=== PATIENT | female | born 1970 | race Caucasian/White ===

== ENCOUNTER 2019-12-21 10:28 | Outpatient (REF) | payer OTHER, SELFPAY | END 2019-12-21 10:29 | disposition home or self-care (01) | LOC: HO.LAB 10:28 | PROVIDERS: PCP Family Medicine; Visit Provider Internal Medicine | DX: Z20.828 Contact with and (suspected) exposure to other viral communicable diseases (principal) | CPT/HCPCS: 87635 ==

== ENCOUNTER → 2020-01-01 09:09 | Outpatient (BNVA) | payer OTHER, SELFPAY | PROVIDERS: PCP Family Medicine; Referring Provider Family Medicine; Visit Provider Obstetrics & Gynecology | DX: Z76.89 Persons encountering health services in other specified circumstances (principal) ==

== ENCOUNTER → 2020-01-11 08:10 | Outpatient (BNVA) | payer OTHER, SELFPAY | PROVIDERS: PCP Family Medicine; Referring Provider Family Medicine; Visit Provider Student in an Organized Health Care Education/Training Program | DX: Z76.89 Persons encountering health services in other specified circumstances (principal) ==

== ENCOUNTER 2020-03-05 16:05 | Outpatient (REF) | payer OTHER, SELFPAY | END 2020-03-05 16:06 | disposition home or self-care (01) | LOC: HO.LAB 16:05 | PROVIDERS: Visit Provider Internal Medicine | DX: Z20.828 Contact with and (suspected) exposure to other viral communicable diseases (principal) | CPT/HCPCS: C9803; U0003 ==

== ENCOUNTER 2020-03-12 16:02 | Outpatient (REF) | payer OTHER, SELFPAY ==
[2020-03-12 16:41] LABS: MANUAL DIFF FLAG NO
[2020-03-12 16:48] LABS: Basophils Absolute Auto 0.1 X10*3/uL (0.0-0.2); Basophils Percent Auto 0.8 % (0-2); Eosinophils Absolute Auto 0.3 X10*3/uL (0.0-0.4); Eosinophils Percent Auto 3.4 % (0-4); Hematocrit 38.8 % (37-47); Hemoglobin 13.1 g/dl (12.0-16.0); Imm Gran Abs Auto 0.02 X10*3/uL (0.00-0.03); Imm Gran Pct Auto 0.2 % (0.0-0.4); Lymphocytes Absolute Auto 3.5 X10*3/uL (1.2-4.9); Lymphocytes Percent Auto 42.7 % (20-40); Mean Corpuscular HGB Conc 33.8 g/dl (31.0-35.0); Mean Corpuscular Hemoglobin 31.3 pg (27.0-33.0); Mean Corpuscular Volume 92.8 fL (80-98); Mean Platelet Volume 10.4 fL (9.4-12.3); Monocytes Absolute Auto 0.7 X10*3/uL (0.1-1.2); Neutrophils Absolute Auto 3.7 X10*3/uL (2.0-8.3); Neutrophils Percent Auto 44.9 % (45-73); Platelet Count 182 X10*3/uL (160-400); Red Blood Count 4.18 X10*6/uL (4.20-5.50); Red Cell Distribution Width 12.5 % (11.0-16.0); White Blood Count 8.3 X10*3/uL (4.8-10.8)
[2020-03-12 17:14] LABS: Alanine Aminotransferase 18 U/L (0-31); Albumin Level 4.4 g/dL (3.5-5.0); Alkaline Phosphatase 46 U/L (39-117); Anion Gap 10 (12-20); Aspartate Amino Transferase 22 U/L (5-31); Bilirubin Total 0.5 mg/dL (0.0-1.0); Blood Urea Nitrogen 26 mg/dL (9-16); C Reactive Protein 0.04 mg/dL (< or = 0.50); Calcium 8.9 mg/dL (8.4-10.2); Carbon Dioxide 26 mmol/L (22-29); Chloride 109 mmol/L (96-108); Estimated Glomerular Filt Rate > 60; Glucose Random 85 mg/dL (60-115); Sodium 141 mmol/L (135-145); Total Protein 6.9 g/dL (6.5-8.0)
[2020-03-12 17:34] LABS: TSH reflex Free T4 0.91 mIU/mL (0.32-4.0)
== END 2020-03-12 16:03 | disposition home or self-care (01) ==
LOC: HO.LAB 16:02
PROVIDERS: PCP Family Medicine; Visit Provider Student in an Organized Health Care Education/Training Program
DX: M06.00 Rheumatoid arthritis without rheumatoid factor, unspecified site (principal); Z79.52 Long term (current) use of systemic steroids
CPT/HCPCS: 36415; 80053; 84443; 85025; 86140

== ENCOUNTER → 2020-05-31 07:55 | Outpatient (BNVA) | payer OTHER, SELFPAY | PROVIDERS: PCP Family Medicine; Referring Provider Family Medicine; Visit Provider Student in an Organized Health Care Education/Training Program ==

== ENCOUNTER 2020-08-13 12:11 | Outpatient (REF) | payer OTHER, SELFPAY ==
[2020-08-13 13:15] LABS: MANUAL DIFF FLAG NO
[2020-08-13 13:21] LABS: Basophils Percent Auto 0.6 % (0-2); Eosinophils Absolute Auto 0.1 X10*3/uL (0.0-0.4); Eosinophils Percent Auto 1.4 % (0-4); Hematocrit 39.2 % (37-47); Hemoglobin 12.9 g/dl (12.0-16.0); Imm Gran Abs Auto 0.03 X10*3/uL (0.00-0.03); Imm Gran Pct Auto 0.4 % (0.0-0.4); Lymphocytes Absolute Auto 2.3 X10*3/uL (1.2-4.9); Lymphocytes Percent Auto 32.4 % (20-40); Mean Corpuscular HGB Conc 32.9 g/dl (31.0-35.0); Mean Corpuscular Hemoglobin 30.7 pg (27.0-33.0); Mean Corpuscular Volume 93.3 fL (80-98); Mean Platelet Volume 10.8 fL (9.4-12.3); Monocytes Absolute Auto 0.4 X10*3/uL (0.1-1.2); Neutrophils Absolute Auto 4.3 X10*3/uL (2.0-8.3); Neutrophils Percent Auto 59.2 % (45-73); Platelet Count 192 X10*3/uL (160-400); Red Cell Distribution Width 12.6 % (11.0-16.0); White Blood Count 7.2 X10*3/uL (4.8-10.8)
[2020-08-13 13:56] LABS: Alanine Aminotransferase 16 U/L (0-31); Albumin Level 4.6 g/dL (3.5-5.0); Alkaline Phosphatase 48 U/L (39-117); Anion Gap 13 (12-20); Aspartate Amino Transferase 19 U/L (5-31); Bilirubin Total 0.9 mg/dL (0.0-1.0); Blood Urea Nitrogen 18 mg/dL (9-16); C Reactive Protein 0.04 mg/dL (< or = 0.50); Calcium 9.4 mg/dL (8.4-10.2); Carbon Dioxide 25 mmol/L (22-29); Chloride 106 mmol/L (96-108); Estimated Glomerular Filt Rate > 60; Glucose Random 94 mg/dL (60-115); Sodium 140 mmol/L (135-145); Total Protein 7.1 g/dL (6.5-8.0)
[2020-08-13 14:04] LABS: Erythrocyte Sedimentation Rate 2 MM/HR (0-20)
[2020-08-13 14:13] LABS: TSH reflex Free T4 0.26 uIU/mL (0.32-4.0)
[2020-08-13 14:56] LABS: Free T4 (Free Thyroxine) 1.32 ng/dL (0.71-1.85)
[2020-08-17 11:52] LABS: Vitamin D 25-OH, D2 <4 ng/mL; Vitamin D 25-OH, D3 26 ng/mL; Vitamin D 25-OH, Total 26 ng/mL (30-100)
== END 2020-08-13 12:12 | disposition home or self-care (01) ==
LOC: HO.LAB 12:11
PROVIDERS: Absent Provider Family Medicine; PCP Family Medicine; Visit Provider Student in an Organized Health Care Education/Training Program
DX: M06.00 Rheumatoid arthritis without rheumatoid factor, unspecified site (principal); E03.9 Hypothyroidism, unspecified
CPT/HCPCS: 36415; 80053; 82306; 84439; 84443; 85025; 85652; 86140

== ENCOUNTER → 2020-08-30 08:22 | Outpatient (BNVA) | payer OTHER, SELFPAY | PROVIDERS: PCP Family Medicine; Visit Provider Student in an Organized Health Care Education/Training Program ==

== ENCOUNTER → 2020-12-04 08:05 | Outpatient (BNVA) | payer OTHER, SELFPAY | PROVIDERS: PCP Family Medicine; Visit Provider Nurse Practitioner Family ==

== ENCOUNTER 2021-01-02 08:02 | Outpatient (REF) | payer OTHER, SELFPAY ==
[2021-01-02 08:16] LABS: MANUAL DIFF FLAG NO
[2021-01-02 08:47] LABS: Basophils Absolute Auto 0.1 X10*3/uL (0.0-0.2); Basophils Percent Auto 0.9 % (0-2); Eosinophils Absolute Auto 0.5 X10*3/uL (0.0-0.4); Eosinophils Percent Auto 6.3 % (0-4); Hematocrit 40.3 % (37-47); Hemoglobin 13.7 g/dl (12.0-16.0); Imm Gran Abs Auto 0.04 X10*3/uL (0.00-0.03); Imm Gran Pct Auto 0.5 % (0.0-0.4); Lymphocytes Absolute Auto 3.1 X10*3/uL (1.2-4.9); Lymphocytes Percent Auto 38.4 % (20-40); Mean Corpuscular Volume 91.2 fL (80-98); Mean Platelet Volume 10.7 fL (9.4-12.3); Monocytes Absolute Auto 0.7 X10*3/uL (0.1-1.2); Monocytes Percent Auto 9.3 % (2-11); Neutrophils Absolute Auto 3.6 X10*3/uL (2.0-8.3); Neutrophils Percent Auto 44.6 % (45-73); Platelet Count 198 X10*3/uL (160-400); Red Blood Count 4.42 X10*6/uL (4.20-5.50); Red Cell Distribution Width 12.5 % (11.0-16.0)
[2021-01-02 09:08] LABS: Alanine Aminotransferase 21 U/L (0-31); Albumin Level 4.5 g/dL (3.5-5.0); Alkaline Phosphatase 49 U/L (39-117); Anion Gap 11 (12-20); Aspartate Amino Transferase 22 U/L (5-31); Bilirubin Total 1.2 mg/dL (0.0-1.0); Blood Urea Nitrogen 26 mg/dL (9-16); C Reactive Protein 0.06 mg/dL (< or = 0.50); Calcium 9.6 mg/dL (8.4-10.2); Carbon Dioxide 24 mmol/L (22-29); Chloride 107 mmol/L (96-108); Estimated Glomerular Filt Rate > 60; Glucose Random 94 mg/dL (60-115); Potassium 4.4 mmol/L (3.3-5.1); Sodium 138 mmol/L (135-145); Total Protein 7.4 g/dL (6.5-8.0)
[2021-01-02 09:33] LABS: Erythrocyte Sedimentation Rate 2 MM/HR (0-20)
== END 2021-01-02 08:03 | disposition home or self-care (01) ==
LOC: HO.LAB 08:02
PROVIDERS: Absent Provider Nurse Practitioner Family; PCP Family Medicine; Visit Provider Student in an Organized Health Care Education/Training Program
DX: M06.00 Rheumatoid arthritis without rheumatoid factor, unspecified site (principal)
CPT/HCPCS: 36415; 80053; 85025; 85652; 86140

== ENCOUNTER → 2021-03-12 09:42 | Outpatient (BNVA) | payer OTHER, SELFPAY | PROVIDERS: PCP Family Medicine; Visit Provider Advanced Practice Midwife | DX: Z30.433 Encounter for removal and reinsertion of intrauterine contraceptive device (principal) | CPT/HCPCS: 58300; 58301; 81025; J7298 ==

== ENCOUNTER → 2021-04-09 10:43 | Outpatient (BNVA) | payer OTHER, SELFPAY | PROVIDERS: PCP Family Medicine; Visit Provider Advanced Practice Midwife ==

== ENCOUNTER → 2021-04-21 07:57 | Outpatient (BNVA) | payer OTHER, SELFPAY | PROVIDERS: PCP Family Medicine; Visit Provider Nurse Practitioner Family ==

== ENCOUNTER 2021-04-22 08:30 | Outpatient (REF) | payer OTHER, SELFPAY ==
[2021-04-22 09:00] LABS: MANUAL DIFF FLAG NO
[2021-04-22 09:38] LABS: Basophils Absolute Auto 0.1 X10*3/uL (0.0-0.2); Basophils Percent Auto 0.7 % (0-2); Eosinophils Absolute Auto 0.4 X10*3/uL (0.0-0.4); Eosinophils Percent Auto 4.7 % (0-4); Hematocrit 41.5 % (37.0-47.0); Hemoglobin 13.9 g/dl (12.0-16.0); Imm Gran Abs Auto 0.03 X10*3/uL (0.00-0.03); Imm Gran Pct Auto 0.4 % (0.0-0.4); Lymphocytes Absolute Auto 3.4 X10*3/uL (1.2-4.9); Lymphocytes Percent Auto 41.2 % (20-40); Mean Corpuscular HGB Conc 33.5 g/dl (31.0-35.0); Mean Corpuscular Hemoglobin 30.7 pg (27.0-33.0); Mean Corpuscular Volume 91.6 fL (80.0-98.0); Mean Platelet Volume 10.4 fL (9.4-12.3); Monocytes Absolute Auto 0.8 X10*3/uL (0.1-1.2); Monocytes Percent Auto 9.2 % (2-11); Neutrophils Absolute Auto 3.6 x10*3/uL (2.0-8.3); Neutrophils Percent Auto 43.8 % (45-73); Platelet Count 223 X10*3/uL (160-400); Red Blood Count 4.53 X10*6/uL (4.20-5.50); Red Cell Distribution Width 12.4 % (11.0-16.0); White Blood Count 8.3 X10*3/uL (4.8-10.8)
[2021-04-22 10:04] LABS: Alanine Aminotransferase 20 U/L (0-31); Albumin Level 4.6 g/dL (3.5-5.0); Alkaline Phosphatase 50 U/L (39-117); Anion Gap 11 (12-20); Aspartate Amino Transferase 19 U/L (5-31); Bilirubin Total 0.7 mg/dL (0.0-1.0); Blood Urea Nitrogen 24 mg/dL (9-16); Calcium 9.9 mg/dL (8.4-10.2); Carbon Dioxide 25 mmol/L (22-29); Chloride 107 mmol/L (96-108); Estimated Glomerular Filt Rate > 60; Glucose Random 102 mg/dL (60-115); Sodium 138 mmol/L (135-145); Total Protein 7.6 g/dL (6.5-8.0)
[2021-04-22 10:09] LABS: Erythrocyte Sedimentation Rate 2 MM/HR (0-20)
[2021-04-22 10:41] LABS: Thyroid Stimulating Hormone 0.17 uIU/mL (0.32-4.0); Vitamin D 25-OH Total 27.2 ng/mL (>30)
== END 2021-04-22 08:31 | disposition home or self-care (01) ==
LOC: HO.LAB 08:30
PROVIDERS: PCP Family Medicine; Visit Provider Nurse Practitioner Family
DX: M06.00 Rheumatoid arthritis without rheumatoid factor, unspecified site (principal)
CPT/HCPCS: 36415; 80053; 82306; 84443; 85025; 85652; 86140

== ENCOUNTER 2021-05-21 07:27 | Outpatient (REF) | payer OTHER, SELFPAY ==
--- NOTE | ~2021-05-21 | MM_ITS ---
EXAMINATION: MM SCREENING DIGITAL BREAST TOMOSYNTHESIS, BILATERAL CLINICAL INFORMATION: Screening. Asymptomatic. The lifetime risk of breast cancer based on the Tyrer-Cuzick Model is 9%. COMPARISON: Mammography: 01/04/2018, 11/01/2013 TECHNIQUE: Digital breast tomosynthesis is performed in both the craniocaudal and mediolateral oblique views along with computer-aided detection (CAD). Synthesized 2D images are generated from the tomosynthesis. FINDINGS: There are scattered areas of fibroglandular density (ACR BI-RADS breast composition Category b). There are no significant masses, abnormal calcifications, or other abnormalities. Parenchymal pattern is similar to prior studies. There are no significant changes. MM/MM tomosynthesis screening BI IMPRESSION: No mammographic evidence of malignancy. ASSESSMENT: BI-RADS 1: Negative RECOMMENDATION: Routine annual mammography screening. This patient's information was entered into a reminder system with a target due date for their next mammogram.
== END 2021-05-21 07:28 | disposition home or self-care (01) ==
LOC: HO.MAMMO 07:27
PROVIDERS: PCP Family Medicine; Visit Provider Advanced Practice Midwife
DX: Z12.31 Encounter for screening mammogram for malignant neoplasm of breast (principal)
CPT/HCPCS: 77063; 77067

== ENCOUNTER → 2021-07-18 07:55 | Outpatient (BNVA) | payer OTHER, SELFPAY | PROVIDERS: PCP Family Medicine; Visit Provider Nurse Practitioner Family | DX: M06.00 Rheumatoid arthritis without rheumatoid factor, unspecified site (principal) ==

== ENCOUNTER 2021-08-25 12:45 | Outpatient (REF) | payer OTHER, SELFPAY ==
[2021-08-25 12:58] LABS: MANUAL DIFF FLAG NO
[2021-08-25 13:23] LABS: Basophils Absolute Auto 0.1 X10*3/uL (0.0-0.2); Basophils Percent Auto 0.5 % (0-2); Eosinophils Absolute Auto 0.2 X10*3/uL (0.0-0.4); Eosinophils Percent Auto 1.8 % (0-4); Hematocrit 38.8 % (37.0-47.0); Imm Gran Abs Auto 0.05 X10*3/uL (0.00-0.03); Imm Gran Pct Auto 0.5 % (0.0-0.4); Lymphocytes Absolute Auto 2.5 X10*3/uL (1.2-4.9); Lymphocytes Percent Auto 26.8 % (20-40); Mean Corpuscular HGB Conc 33.5 g/dl (31.0-35.0); Mean Corpuscular Hemoglobin 31.3 pg (27.0-33.0); Mean Corpuscular Volume 93.3 fL (80.0-98.0); Mean Platelet Volume 10.2 fL (9.4-12.3); Monocytes Absolute Auto 0.6 X10*3/uL (0.1-1.2); Monocytes Percent Auto 6.3 % (2-11); Neutrophils Absolute Auto 6.1 x10*3/uL (2.0-8.3); Neutrophils Percent Auto 64.1 % (45-73); Platelet Count 205 X10*3/uL (160-400); Red Blood Count 4.16 X10*6/uL (4.20-5.50); White Blood Count 9.5 X10*3/uL (4.8-10.8)
[2021-08-25 13:43] LABS: Alanine Aminotransferase 17 U/L (0-31); Albumin Level 4.4 g/dL (3.5-5.0); Alkaline Phosphatase 50 U/L (39-117); Anion Gap 11 (12-20); Aspartate Amino Transferase 18 U/L (5-31); Bilirubin Total 0.9 mg/dL (0.0-1.0); Blood Urea Nitrogen 19 mg/dL (9-16); C Reactive Protein 0.09 mg/dL (< or = 0.50); Calcium 9.4 mg/dL (8.4-10.2); Carbon Dioxide 27 mmol/L (22-29); Chloride 105 mmol/L (96-108); Estimated Glomerular Filt Rate > 60; Glucose Random 89 mg/dL (60-115); Potassium 4.6 mmol/L (3.3-5.1); Sodium 138 mmol/L (135-145); Total Protein 7.3 g/dL (6.5-8.0)
[2021-08-25 14:03] LABS: Vitamin D 25-OH Total 24.6 ng/mL (>30)
[2021-08-25 14:08] LABS: TSH reflex Free T4 1.08 uIU/mL (0.32-4.0)
[2021-08-25 14:31] LABS: Erythrocyte Sedimentation Rate 2 MM/HR (0-20)
== END 2021-08-25 12:46 | disposition home or self-care (01) ==
LOC: HO.LAB 12:45
PROVIDERS: Absent Provider Family Medicine; PCP Family Medicine; Visit Provider Nurse Practitioner Family
DX: M06.00 Rheumatoid arthritis without rheumatoid factor, unspecified site (principal); E03.9 Hypothyroidism, unspecified
CPT/HCPCS: 36415; 80053; 82306; 84443; 85025; 85652; 86140

== ENCOUNTER 2021-10-30 08:50 | Outpatient (REF) | payer OTHER, SELFPAY ==
[2021-10-30 10:59] LABS: MANUAL DIFF FLAG NO
[2021-10-30 11:05] LABS: Basophils Absolute Auto 0.1 X10*3/uL (0.0-0.2); Basophils Percent Auto 0.9 % (0-2); Eosinophils Absolute Auto 0.4 X10*3/uL (0.0-0.4); Eosinophils Percent Auto 5.8 % (0-4); Hematocrit 38.8 % (37.0-47.0); Imm Gran Abs Auto 0.03 X10*3/uL (0.00-0.03); Imm Gran Pct Auto 0.4 % (0.0-0.4); Lymphocytes Absolute Auto 2.5 X10*3/uL (1.2-4.9); Lymphocytes Percent Auto 36.7 % (20-40); Mean Corpuscular HGB Conc 33.5 g/dl (31.0-35.0); Mean Corpuscular Hemoglobin 31.6 pg (27.0-33.0); Mean Corpuscular Volume 94.4 fL (80.0-98.0); Mean Platelet Volume 10.8 fL (9.4-12.3); Monocytes Absolute Auto 0.5 X10*3/uL (0.1-1.2); Monocytes Percent Auto 7.5 % (2-11); Neutrophils Absolute Auto 3.3 x10*3/uL (2.0-8.3); Neutrophils Percent Auto 48.7 % (45-73); Platelet Count 189 X10*3/uL (160-400); Red Blood Count 4.11 X10*6/uL (4.20-5.50); Red Cell Distribution Width 12.6 % (11.0-16.0); White Blood Count 6.8 X10*3/uL (4.8-10.8)
[2021-10-30 11:16] LABS: Alanine Aminotransferase 26 U/L (0-31); Aspartate Amino Transferase 28 U/L (5-31); C Reactive Protein 0.08 mg/dL (< or = 0.50); Estimated Glomerular Filt Rate > 60
[2021-10-30 11:46] LABS: Erythrocyte Sedimentation Rate 3 MM/HR (0-20)
== END 2021-10-30 08:51 | disposition home or self-care (01) ==
LOC: HO.10HDL 08:50
PROVIDERS: Visit Provider Nurse Practitioner Family
DX: M06.00 Rheumatoid arthritis without rheumatoid factor, unspecified site (principal); Z79.899 Other long term (current) drug therapy
CPT/HCPCS: 36415; 82306; 82565; 84450; 84460; 85025; 85652; 86140

== ENCOUNTER 2022-01-16 14:00 | Outpatient (RCR) | payer OTHER, SELFPAY ==
--- NOTE | 2021-10-07 09:06 | MHC.PT.EP ---
[facility] [place] Office [place] Office [place] Office [address] [phone] F: [phone] F: [phone] F: [phone] F: [phone] Physical Therapy Plan of Care Date of Evaluation: Date of Surgery: NA Diagnosis: Pain in LT lower leg Assessment: Karey is a 51 year old female who is referred to PT for Lower leg pain, L . She reports of having sudden onset of pain in L calf about 2 weeks back while playing pickle ball. She performed a hard step on L foot after which she heard a pop and was unable to weight bear. On PT examination she walked in with crutches and was non weight bearing, reported of having pain, tightness and stiffness in her calf, presented with significant swelling, decreased ankle ROM and strength and inability to weight bear on L LE. She is independent with most ADLS however modifies them. 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 She was recommended a ortho visit for further detailed assessment and imaging. She would benefit from skilled PT to address the aforementioned impairment and improve tolerance to functional activities. Frequency and Duration: The patient will be seen 2/week for 9 weeks Short Term Goals: 1. Pt will have 50% decrease in pain and swelling which will help her tolerate sitting with her legs hanging in 3 weeks. 2. Pt will have all ankle ROM WNL which will enable her to ambulate weight bearing as tolerated in 4 weeks. Care Home Goals: 1. Pt will demonstrate an increase in strength by 1 grade which will enable her to ambulate without AD in 6 weeks. 2. Pt will be able to perform FWB on L and tolerate SLS which will enable her to negotiate stairs in 8 weeks. 3. Pt will return to PLOF in 9 weeks. Treatment Plan: Modalities to reduce pain, spasms and effusion. Manual therapy to restore motion and function. Therapeutic exercise to improve strength and flexibility. Neuromuscular re-education for posture and balance. Therapeutic activities to return to functional activities of daily living. Electronically signed by: Patricia Wolf PT DPT Please sign and return to therapist. Thank you for your referral.
--- NOTE | 2022-01-19 13:34 | MHC.PT.DC ---
[facility] [place] Office [place] Office [place] Office [address] Kiah Mcpherson [address] [phone] F: [phone] F: [phone] F: [phone] F: [phone] Physical Therapy Discharge Report Diagnosis: Pain in LT lower leg Date of Surgery: NA Date of Evaluation: 10/07/21 Date of Discharge: 01/19/22 Treatments to Date: 19 Cancellations to Date: No Shows to Date: 0 Discharge Status: Achieved Goals Improved Function Independent with HEP Discharge Summary: Karey completed 19 PT visits. She has achieved all goals set for and is independent with all her HEP. She has also returned to PLOF. She is therefore being d/c from PT. Electronically signed by: Patricia Wolf, PT DPT Please sign and return to therapist. Thank you for your referral.
== END 2022-01-19 13:34 | disposition home or self-care (01) ==
LOC: HO.PT 14:00
PROVIDERS: Absent Provider Physician Assistant; PCP Family Medicine; Visit Provider Internal Medicine
DX: M79.662 Pain in left lower leg (principal)
CPT/HCPCS: 97035; 97110; 97112; 97140; 97162; 97530

== ENCOUNTER 2022-01-16 15:05 | Outpatient (REF) | payer OTHER, SELFPAY ==
[2022-01-16 15:41] LABS: Alanine Aminotransferase 29 U/L (0-31); Albumin Level 4.5 g/dL (3.5-5.0); Alkaline Phosphatase 55 U/L (39-117); Aspartate Amino Transferase 26 U/L (5-31); Bilirubin Direct 0.3 mg/dL (0.0-0.5); Bilirubin Total 0.8 mg/dL (0.0-1.0); Total Protein 7.5 g/dL (6.5-8.0)
== END 2022-01-16 15:06 | disposition home or self-care (01) ==
LOC: HO.LAB 15:05
PROVIDERS: PCP Family Medicine; Visit Provider Podiatrist
DX: B35.1 Tinea unguium (principal)
CPT/HCPCS: 36415; 80076

== ENCOUNTER → 2022-04-27 14:13 | Outpatient (BNVA) | payer BC, SELFPAY | PROVIDERS: PCP Family Medicine; Visit Provider Nurse Practitioner Family | DX: Z13.89 Encounter for screening for other disorder (principal) ==

== ENCOUNTER 2022-05-27 07:29 | Outpatient (REF) | payer BC, SELFPAY ==
--- NOTE | ~2022-05-27 | MM_ITS ---
EXAMINATION: MM SCREENING DIGITAL BREAST TOMOSYNTHESIS, BILATERAL CLINICAL INFORMATION: Screening. Asymptomatic. The lifetime risk of breast cancer based on the Tyrer-Cuzick Model is 10.0%. COMPARISON: Mammography: May 21, 2021 and studies dating back to November 01, 2013 TECHNIQUE: Digital breast tomosynthesis is performed in both the craniocaudal and mediolateral oblique views along with computer-aided detection (CAD). Synthesized 2D images are generated from the tomosynthesis. FINDINGS: There are scattered areas of fibroglandular density (ACR BI-RADS breast composition Category b). There are no significant masses, abnormal calcifications, or other abnormalities. MM/MM tomosynthesis screening BI IMPRESSION: No significant changes from prior exam. ASSESSMENT: BI-RADS 1: Negative RECOMMENDATION: Routine annual mammography screening. This patient's information was entered into a reminder system with a target due date for their next mammogram.
--- NOTE | ~2022-05-27 | MM_ITS ---
EXAMINATION: BONE DENSITOMETRY CLINICAL INDICATION: Long-term (current) use of systemic steroids. COMPARISON: Baseline BD dated 09/09/2018. TECHNIQUE: Using a [employer] DXA System (software version: 13.1) manufactured by [employer], dual-energy x-ray absorptiometry was performed of the lumbar spine and left hip. The images are of good technical quality. Summary results are attached. FINDINGS: AP SPINE L1-L4: Current: BMD 1.169 g/cm2, Z-score 0.3, T-score -0.1, normal, 1.6% decrease from baseline (<5% change is not significant). Baseline: BMD 1.188 g/cm2. LEFT FEMUR, NECK: Current: BMD 0.871 g/cm2, Z-score -0.5, T-score -1.2, osteopenia. Baseline: BMD 0.824 g/cm2. LEFT FEMUR, TOTAL: Current: BMD 0.958 g/cm2, Z-score 0.0, T-score -0.4, normal, 9.5% increase from baseline (<5% change is not significant). Baseline: BMD 0.875 g/cm2. IDENTIFIED RISK FACTORS: Rheumatoid arthritis, glucocorticoids (chronic). HISTORY OF FRACTURE: None listed. MEDICATIONS: Vitamin D. MM/XR DEXA axial skeleton IMPRESSION: 1. DIAGNOSIS: Osteopenia based on the lowest T-score value of -1.2 in the femoral neck applying World Health Organization criteria. 2. 10-YEAR FRACTURE RISK PREDICTION, FRAX: Major osteoporotic fracture (clinical spine, forearm, hip or shoulder) 9.2%. Hip fracture 0.7%. 3. Treatment Recommendations: NOF guidelines recommend consideration for treatment in postmenopausal women and men age 50 and older presenting with the following: -A hip or vertebral (clinical or morphometric) fracture. -T-score less than or equal to -2.5 at the femoral neck or spine after appropriate evaluation to exclude secondary causes. -Low bone mass at the hip or spine and a 10-year fracture probability by FRAX of greater than or equal to 3% for hip fracture or greater than or equal to 20% for major osteoporotic fracture based on the [place] adapted WHO algorithm. 4. Other Recommendations: All treatment decisions require clinical judgment and consideration of individual patient factors, including patient preferences, comorbidities, previous drug use, risk factors not captured in the FRAX model (e.g. frailty, falls, vitamin D deficiency, increased bone turnover, interval significant decline in bone density) and possible under or overestimation of fracture risk by FRAX. Additional medical evaluation for secondary cause of low bone mineral density may be appropriate. FUTURE SCAN RECOMMENDATION: People with diagnosed cases of osteoporosis or at high risk for fracture should have regular bone mineral density tests. For patients eligible for Medicare, routine testing is allowed once every 2 years. The testing frequency can be increased to one year for patients who have rapidly progressing disease, those who are receiving or discontinuing medical therapy to restore bone mass, or have additional risk factors.
== END 2022-05-27 07:30 | disposition home or self-care (01) ==
LOC: HO.MAMMO 07:29
PROVIDERS: PCP Family Medicine; Visit Provider Nurse Practitioner Family
DX: Z12.31 Encounter for screening mammogram for malignant neoplasm of breast (principal); Z13.820 Encounter for screening for osteoporosis; Z79.52 Long term (current) use of systemic steroids
CPT/HCPCS: 77063; 77067; 77080

== ENCOUNTER 2022-05-29 08:23 | Outpatient (REF) | payer BC, SELFPAY ==
[2022-05-29 11:28] LABS: MANUAL DIFF FLAG NO
[2022-05-29 11:29] LABS: Basophils Absolute Auto 0.1 X10*3/uL (0.0-0.2); Basophils Percent Auto 0.6 % (0-2); Eosinophils Absolute Auto 0.4 X10*3/uL (0.0-0.4); Eosinophils Percent Auto 4.4 % (0-4); Hematocrit 39.1 % (37.0-47.0); Imm Gran Abs Auto 0.03 X10*3/uL (0.00-0.03); Imm Gran Pct Auto 0.4 % (0.0-0.4); Lymphocytes Absolute Auto 3.1 X10*3/uL (1.2-4.9); Lymphocytes Percent Auto 37.6 % (20-40); Mean Corpuscular HGB Conc 33.2 g/dl (31.0-35.0); Mean Corpuscular Hemoglobin 31.2 pg (27.0-33.0); Mean Corpuscular Volume 93.8 fL (80.0-98.0); Mean Platelet Volume 10.9 fL (9.4-12.3); Monocytes Absolute Auto 0.6 X10*3/uL (0.1-1.2); Monocytes Percent Auto 7.8 % (2-11); Neutrophils Percent Auto 49.2 % (45-73); Platelet Count 192 X10*3/uL (160-400); Red Blood Count 4.17 X10*6/uL (4.20-5.50); White Blood Count 8.2 X10*3/uL (4.8-10.8)
[2022-05-29 12:02] LABS: Alanine Aminotransferase 19 U/L (0-31); Aspartate Amino Transferase 20 U/L (5-31); C Reactive Protein < 0.10 mg/dL (< or = 0.50); Estimated Glomerular Filt Rate > 60
[2022-05-29 12:03] LABS: Alanine Aminotransferase 18 U/L (0-31); Albumin Level 4.2 g/dL (3.5-5.0); Alkaline Phosphatase 39 U/L (39-117); Aspartate Amino Transferase 20 U/L (5-31); Bilirubin Direct 0.2 mg/dL (0.0-0.5); Bilirubin Total 0.7 mg/dL (0.0-1.0); Total Protein 6.9 g/dL (6.5-8.0)
[2022-05-29 12:17] LABS: Erythrocyte Sedimentation Rate 2 MM/HR (0-20)
== END 2022-05-29 08:24 | disposition home or self-care (01) ==
LOC: HO.10HDL 08:23
PROVIDERS: Referring Provider Podiatrist; Visit Provider Nurse Practitioner Family
DX: M06.00 Rheumatoid arthritis without rheumatoid factor, unspecified site (principal); B35.1 Tinea unguium; Z79.899 Other long term (current) drug therapy
CPT/HCPCS: 36415; 80076; 82565; 84450; 84460; 85025; 85652; 86140

== ENCOUNTER 2022-09-22 11:39 | Outpatient (AMB) | payer BC, SELFPAY ==
[2022-09-22 11:41] VITALS: BP 104/68; PULSE 75; TEMP 36.4; O2SAT 99; BMI 24.7
--- NOTE | 2022-09-22 11:41 | MHC.OFFVIS ---
Intake Vital Signs 09/22/22 11:41 Height 5 ft 2 in Weight 135 lb 2.294 oz BMI 24.7 BP 104/68 Blood Pressure Location Lt brachial Position Sitting Pulse 75 Pulse Source Pulse Oximeter Temp 97.5 F Temp Source Skin Pulse Oximetry (%) 99 Intake Visit Reasons: rheumatoid arthritis Intake Note: Pt seen today for RA follow up. Denies new or increased joint pain, or recent flare ups. 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 Accompanied by: Self / Same As Patient Allergies shellfish derived Allergy (Unknown, Verified 09/22/22 11:43) Unknown Erythromycin Allergy (Intermediate, Uncoded 09/22/22 11:43) hives Medication List - Last Reconciled 09/22/22 by Brent Nichols MD adalimumab (Humira(CF) Pen) 40 mg (0.4 mL) subcut Q2W cholecalciferol (vitamin D3) 50 mcg PO DAILY levonorgestrel (Mirena) intrauterine levothyroxine 88 mcg PO DAILY prednisone 1 mg PO DAILY rizatriptan take 1 tablet at onset of headache; if no relief, may repeat 1 tablet after at least 2 hrs PO HPI HPI Comments History of Present Illness Details The patient presents for evaluation of rheumatoid arthritis. She says she is doing quite well currently on Humira 40 mg every 2 weeks and prednisone 1 mg daily. Occasionally on bad days she takes an extra mg of prednisone but has not had to do that in the last month or 2. There have been no adverse effects with Humira. She did have a missed week of treatment when her insurance changed but there has not been any further hold ups. She is on thyroid hormone for hypothyroidism and wants to have the TSH checked. [facility] Medical History (Updated 09/22/22 @ 12:06 by Brent Nichols MD) History of hypothyroidism Hx of rheumatoid arthritis Seronegative rheumatoid arthritis Surgical History Hx of carpal tunnel repair Hx of hernia repair Social History Household Members: Spouse Housing: House Alcohol intake: current Alcohol intake frequency: a few times a week Alcohol type: wine Patient Tobacco Use Status: Never used Tobacco e-Cigarette/Vaping Use: Never Used Sexual orientation: Straight/Heterosexual Gender identity: Female Female Reproductive History Menstrual Age of Menarche: 13 Review of Systems Const Details: Negative for appetite change, weight change, fever, chills, malaise and fatigue Eyes Details: Negative for vision change, dry eyes,headaches and dizziness ENT Details: Negative for hearing change, tinnitus, oral ulcer, nose bleeds and oral dryness. Card Details: Negative chest pain, edema and syncope Resp Details: Negative for SOB, cough and wheezing GI Details: Negative indigestion/heartburn, nausea, abdominal pain, bowel changes, diarrhea, constipation and bloody stool. Neuro Details: Occasional tingling in the right hand when that wrist becomes swollen. Negative for epilepsy, palsy, stroke, changes in speech and weakness Endo Details: Negative for polyuria and polydypsia [place]/Lymph Details: Negative for excessive bruising or bleeding. Physical Exam Vital Signs: Last Vital Signs Temp 97.5 F 09/22/22 11:41 Pulse 75 09/22/22 11:41 BP 104/68 09/22/22 11:41 Pulse Ox 99 09/22/22 11:41 BMI result Body Mass Index 24.7 APPEARANCE: Patient in no acute distress EYES no redness, pupils equal and reactive to light, eyelids normal EXTREMITIES: No edema, no calf tenderness, normal peripheral pulses. JOINT EXAM: Cervical Spine: Full range of motion without pain; no tenderness. Thoracic Spine:? No scoliosis.? No tenderness on palpation. Lumbar Spine:? Alignment normal.? Full range of motion without pain, no tenderness. Hands:? Normal pain-free range of motion without tenderness, swelling, increased warmth or erythema. 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 Wrists:? Right: Slight pain with 90 degrees of flexion extension. There is no tenderness but there may be some volar swelling. No redness or warmth. Left: Normal pain-free range of motion without tenderness, swelling, increased warmth or erythema. Elbows: Normal pain-free range of motion without tenderness, swelling, increased warmth or erythema. Shoulders:?? Full range of motion without pain. No tenderness, weakness, swelling, increased warmth or erythema. Hips:? Full range of motion without pain. Hip bursa:? No tenderness. Knees:?? Normal pain-free range of motion without tenderness, swelling, increased warmth or erythema.? There is no effusion or crepitation Ankles:? LEFT:? Normal pain-free range of motion.? No soft tissue swelling noted today. No tenderness, increased warmth or erythema. ? RIGHT:? Normal pain-free range of motion.? Swelling no swelling noted today. No tenderness, increased warmth or erythema. Feet: LEFT :? Normal pain-free range of motion with mild 1st MTP bony enlargement. There is some slight hallux valgus deformity but no tenderness in that region. Other joints are without tenderness, swelling, increased warmth or erythema.? Hallux valgus deformity 1st MTP. ? RIGHT: Right: There is some bony enlargement evidence of previous surgery at the 1st MTP. No areas of tenderness however. Other joints have normal pain-free range of motion without tenderness, swelling, increased warmth or erythema. ? 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 Plaquenil: 08/30/2018 Methotrexate: failed oral and subcutaneous dates unknown Xeljanz: dates unknown Leflunomide: dates unknown Enbrel: dates unknown Humira: April 2019- present Prednisone: 06/08/2018- present Code(s): M06.00 - Rheumatoid arthritis without rheumatoid factor, unspecified site Plan Rheumatoid arthritis with I think good control of synovitis with current regimen. I am not sure she really needs to stay on the prednisone but she feels like she does for now. We reviewed that the prednisone could increase the possibility of osteoporosis, cataract, and skin fragility even at this relatively low dose. Her bone density showed osteopenia but not enough to push for antiresorptive therapy. She still having menses so should have the bone density repeated when she experiences menopause. We will see if we can cut back the overall dose to 1 mg every other day. She can continue the Humira as above. I will check acute phase reactants, CBC, and at her request the TSH. She is on levothyroxine for hypothyroidism and has not had that checked recently. We will aim for follow-up at about 5 months. Orders: Orders C Reactive Protein 09/22/22 M06.00 - Rheumatoid arthritis without rheumatoid factor, unspecified site Thyroid Stimulating Hormone 09/22/22 M06.00 - Rheumatoid arthritis without rheumatoid factor, unspecified site, Z86.39 - Personal history of other endocrine, nutritional and metabolic disease Complete Blood Count Auto Diff 09/22/22 M06.00 - Rheumatoid arthritis without rheumatoid factor, unspecified site Erythrocyte Sedimentation Rate 09/22/22 M06.00 - Rheumatoid arthritis without rheumatoid factor, unspecified site Coding Level of Care Code Est Pt Level 3 (90724) Diagnoses correction systemic steroid user Z79.52 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
== END 2022-09-22 12:09 | disposition home or self-care (01) ==
LOC: HO.RHE 11:39
PROVIDERS: PCP Family Medicine; Visit Provider Internal Medicine Rheumatology
DX: Z79.52 Long term (current) use of systemic steroids (principal); Z79.620 Long term (current) use of immunosuppressive biologic; Z86.39 Personal history of other endocrine, nutritional and metabolic disease; M06.00 Rheumatoid arthritis without rheumatoid factor, unspecified site
CPT/HCPCS: 99213

== ENCOUNTER → 2022-09-22 11:39 | Outpatient (BNVA) | payer BC, SELFPAY | PROVIDERS: PCP Family Medicine; Visit Provider Internal Medicine Rheumatology ==

== ENCOUNTER 2022-10-13 07:59 | Outpatient (REF) | payer BC, SELFPAY ==
[2022-10-13 10:54] LABS: MANUAL DIFF FLAG NO
[2022-10-13 11:00] LABS: Basophils Absolute Auto 0.1 X10*3/uL (0.0-0.2); Basophils Percent Auto 0.9 % (0-2); Eosinophils Absolute Auto 0.6 X10*3/uL (0.0-0.4); Hematocrit 38.9 % (37.0-47.0); Hemoglobin 12.7 g/dl (12.0-16.0); Imm Gran Abs Auto 0.02 X10*3/uL (0.00-0.03); Imm Gran Pct Auto 0.3 % (0.0-0.4); Lymphocytes Absolute Auto 2.9 X10*3/uL (1.2-4.9); Lymphocytes Percent Auto 42.8 % (20-40); Mean Corpuscular HGB Conc 32.6 g/dl (31.0-35.0); Mean Corpuscular Hemoglobin 31.1 pg (27.0-33.0); Mean Corpuscular Volume 95.1 fL (80.0-98.0); Mean Platelet Volume 10.3 fL (9.4-12.3); Monocytes Absolute Auto 0.6 X10*3/uL (0.1-1.2); Monocytes Percent Auto 9.2 % (2-11); Neutrophils Absolute Auto 2.6 x10*3/uL (2.0-8.3); Neutrophils Percent Auto 37.8 % (45-73); Platelet Count 206 X10*3/uL (160-400); Red Blood Count 4.09 X10*6/uL (4.20-5.50); White Blood Count 6.9 X10*3/uL (4.8-10.8)
[2022-10-13 11:30] LABS: C Reactive Protein 0.13 mg/dL (< or = 0.50)
[2022-10-13 11:35] LABS: Thyroid Stimulating Hormone 0.64 uIU/mL (0.32-4.0)
[2022-10-13 11:43] LABS: Erythrocyte Sedimentation Rate 3 MM/HR (0-20)
== END 2022-10-13 08:00 | disposition home or self-care (01) ==
LOC: HO.10HDL 07:59
PROVIDERS: Visit Provider Internal Medicine Rheumatology
DX: M06.00 Rheumatoid arthritis without rheumatoid factor, unspecified site (principal); Z86.39 Personal history of other endocrine, nutritional and metabolic disease
CPT/HCPCS: 36415; 84443; 85025; 85652; 86140

== ENCOUNTER 2022-11-05 09:07 | Outpatient (REF) | payer BC, SELFPAY ==
[2022-11-10 04:43] LABS: HPV mRNA E6/E7 rflx Not Detected (Not Detected)
== END 2022-11-05 09:08 | disposition home or self-care (01) ==
LOC: HO.LNP 09:07
PROVIDERS: PCP Family Medicine; Visit Provider Advanced Practice Midwife
DX: Z01.419 Encounter for gynecological examination (general) (routine) without abnormal findings (principal); N95.1 Menopausal and female climacteric states; Z12.72 Encounter for screening for malignant neoplasm of vagina; Z30.431 Encounter for routine checking of intrauterine contraceptive device
CPT/HCPCS: 87624; 88142

== ENCOUNTER 2022-11-05 09:07 | Outpatient (AMB) | payer BC, SELFPAY ==
--- NOTE | 2022-11-05 09:15 | MHC.OFFVIS ---
Intake Vital Signs 11/05/22 09:16 Height 5 ft 2 in Weight 136 lb BMI 24.9 BP 104/66 Intake Visit Reasons: Annual Intake Note: The patient agreed to use of a senior medical technologist during this encounter. Scribed for SOHAIL Gonzalez by Gaby Cevallos senior medical technologist, on 11/05/2022 at 9:27 am EST. Potato Chip Maker: Potato Chip Maker Present (Yudy) Allergies shellfish derived Allergy (Unknown, Verified 11/05/22 09:16) Unknown Erythromycin Allergy (Intermediate, Uncoded 09/22/22 11:43) hives Is last menstrual period known: Yes Last menstrual period: 10/29/22 HPI HPI Comments History of Present Illness Details She is a premenopausal woman presenting for annual exam. Patient admits she tries to eat a healthy diet including Calcium and Vitamin D. She stays active with exercise. Currently sexually active. Reports cyclic menses while on Mirena IUD and is doing well with it. Denies hot flashes vaginal itching and irritation. STD screening offered; she accepts. Denies family hx of breast, colon and ovarian cancer. Last pap smear 01/03/16. Last mammogram 05/27/22. Has not had a colonoscopy, but has a scheduled visit with PCP. [facility] Medical History Carpal tunnel syndrome History of hypothyroidism Hx of rheumatoid arthritis IUD surveillance Perimenopausal Seronegative rheumatoid arthritis Surgical History Hx of hernia repair Social History Household Members: Spouse Housing: House Alcohol intake: current Alcohol intake frequency: a few times a week Alcohol type: wine Patient Tobacco Use Status: Never used Tobacco e-Cigarette/Vaping Use: Never Used Sexual orientation: Straight/Heterosexual Gender identity: Female Female Reproductive History Menstrual Age of Menarche: 13 Date of last menstrual period: 10/29/22 control method: progestin IUCD (Mirena 02/2021; IUD strings visible 11/05/22) Total pregnancies: 3 Full term: 3 Number of Living Children: 3 Date of last pap smear: 01/03/16 (neg pap and hpv) Date of Mammogram: 05/27/22 (Birad 1) Date of last Bone Density Screenin05/27/22 Physical Exam Vital Signs: Last Vital Signs BP 104/66 11/05/22 09:16 BMI result Body Mass Index 24.9 Const General: cooperative, healthy appearing, no acute distress, well developed and alert Orientation/consciousness: patient oriented x3 HEENT Head: Yes normal to inspection Eyes General: appearance normal, both eyes and all related structures Neck Neck: Yes normal visual inspection Thyroid: Thyroid normal Chest Chest palpation & inspection: normal inspection of the chest Breast/axilla inspection: normal inspection of the breasts (no puckering, dimpling, peau de orange, retraction, discharge, masses) Breast/axilla palpation: normal palpation of the breasts Resp Effort & Inspection: normal respiratory effort GI Inspection: Yes normal to inspection Palpation (GI): Soft to palpation (to palpation) Rectal Exam - Female: deferred General: Yes bladder normal to inspection External Female Exam: normal external appearance and normal appearance of the urethra Speculum Exam - Vagina: normal appearance of the vagina, normal palpation and normal vaginal discharge Speculum Exam - Cervix: normal appearance of the cervix, normal palpation and Other cervical findings present (small amount of blood; IUD strings visible) Bimanual exam- vagina & uterus: normal palpation and normal palpation Bimanual Exam- Adnexa, other: normal adnexae and no masses Skin General skin exam: no rashes or lesions noted Neuro General: patient oriented x3 Cognition (Neuro): normal cognition Extrem General: Yes normal to inspection Psych Attitude: cooperative Thought process: Normal thought process present Assessment & Plan Assessment & Plan (1) Encounter for well woman exam: Code(s): Z01.419 - Encounter for gynecological examination (general) (routine) without abnormal findings Plan: Discussed: Current recommendations for pap smears per ASCCP guidelines Breast awareness and periodic self breast exams. Maintaining a healthy lifestyle including a well balanced diet and routine exercise. Encouraged patient to sign up for patient portal. All of her questions and concerns were addressed to the best of my ability. RTO in one year for AG. (2) Perimenopausal: Code(s): N95.1 - Menopausal and female climacteric states Plan: Counseled re: perimenopause vs menopause. Monitor periods, report any unscheduled bleeding, bleeding episodes less than 21 days apart or heavy prolonged menstrual bleeding. Labs ordered. Orders: Orders Follicle Stimulating Hormone Today N95.1 - Menopausal and female climacteric states, Z30.431 - Encounter for routine checking of intrauterine contraceptive device Pap Smear Today Z01.419 - Encounter for gynecological examination (general) (routine) without abnormal findings Coding Level of Care Code Est Pt Prev Care 40-64y(56752) Diagnoses Encounter for well woman exam Z01.419 Perimenopausal N95.1
[2022-11-05 09:16] VITALS: BP 104/66; BMI 24.9
== END 2022-11-05 09:38 | disposition home or self-care (01) ==
LOC: HO.HWS 09:07
PROVIDERS: PCP Family Medicine; Visit Provider Advanced Practice Midwife
DX: Z01.419 Encounter for gynecological examination (general) (routine) without abnormal findings (principal); N95.1 Menopausal and female climacteric states
CPT/HCPCS: 99396

== ENCOUNTER 2022-12-11 08:25 | Outpatient (REF) | payer BC, SELFPAY ==
[2022-12-11 17:58] LABS: CT PCR NOT DETECTED (Not Detect.); NG PCR NOT DETECTED (Not Detect.)
[2022-12-12 11:08] LABS: BV Int Neg Control Negative (Negative); BV Int Pos Control Positive (Positive)
== END 2022-12-11 08:26 | disposition home or self-care (01) ==
LOC: HO.LNP 08:25
PROVIDERS: PCP Family Medicine; Visit Provider Advanced Practice Midwife
DX: N92.6 Irregular menstruation, unspecified (principal); Z20.2 Contact with and (suspected) exposure to infections with a predominantly sexual mode of transmission
CPT/HCPCS: 0353U; 87480; 87510; 87660

== ENCOUNTER 2022-12-11 08:25 | Outpatient (AMB) | payer BC, SELFPAY ==
--- NOTE | 2022-12-11 08:27 | A.OFFVIS_ITS ---
Intake Vital Signs 12/11/22 08:38 Height 5 ft 2 in Weight 134 lb 7.712 oz BMI 24.6 BP 112/66 Intake Visit Reasons: EMB Intake Note: The patient agreed to use of a lpn or medical assistant during this encounter. Scribed for SOHAIL Gonzalez by Cyndi Richmond lpn or medical assistant, on 12/11/2022 at 8:15 am EST Tool Design Draftsperson Required: No Information Interpreted: non-clinical & clinical Accompanied by: Self / Same As Patient Allergies shellfish derived Allergy (Unknown, Verified 12/11/22 08:38) Unknown Erythromycin Allergy (Intermediate, Uncoded 12/11/22 08:38) hives Is last menstrual period known: Yes Last menstrual period: 11/19/22 HPI HPI Comments History of Present Illness Details She presents for follow up of irregular menses. Has Mirena IUD and has had cyclic menses approximately every 3-4 weeks since insertion. Reports she has always had a menses every 3-4 weeks since menarche. No bleeding in between cycles. Mirena exchanged at 6 yrs., in 02/2021 with history of monthly bleeding, no change is pattern since. Denies hot flashes. Denies pelvic pain. [facility] Medical History Perimenopausal Carpal tunnel syndrome Seronegative rheumatoid arthritis History of hypothyroidism Hx of rheumatoid arthritis Surgical History Hx of hernia repair Social History Household Members: Spouse Housing: House Alcohol intake: current Alcohol intake frequency: a few times a week Alcohol type: wine Patient Tobacco Use Status: Never used Tobacco e-Cigarette/Vaping Use: Never Used Sexual orientation: Straight/Heterosexual Gender identity: Female Female Reproductive History Menstrual Age of Menarche: 13 Date of last menstrual period: 11/19/22 control method: progestin IUCD Review of Systems Const All systems reviewed & are unremarkable except as noted in HPI and below Physical Exam Vital Signs: Last Vital Signs BP 112/66 12/11/22 08:38 BMI result Body Mass Index 24.6 Const General: cooperative, no acute distress, well developed and alert External Female Exam: normal external appearance Speculum Exam - Vagina: normal appearance of the vagina Speculum Exam - Cervix: normal appearance of the cervix (IUD strings present) Bimanual exam- vagina & uterus: normal bimanual exam, uterine size normal, uterine shape normal and non-tender Bimanual Exam- Adnexa, other: normal adnexae and no masses Results Reviewed Results Reviewed: Laboratory Tests 10/13/22 08:05 Hgb 12.7 Hct 38.9 TSH 0.64 Assessment & Plan Assessment & Plan (1) Irregular menses: Code(s): N92.6 - Irregular menstruation, unspecified Plan: Due to close spacing of cycles, discussed work up including pelvic US and labs. Reviewed normal spacing of menses, contact office with any bleeding that are less than 3 weeks apart or heavy or prolonged bleeding. All of her questions and concerns were addressed to the best of my ability and shared decision making: for US and labs. She is agreeable to plan of care. RTO for test results. (2) IUD surveillance: Code(s): Z30.431 - Encounter for routine checking of intrauterine contraceptive device (3) Potential exposure to STD: Code(s): Z20.2 - Contact with and (suspected) exposure to infections with a predominantly sexual mode of transmission Orders: Orders CT NG by PCR Today N92.6 - Irregular menstruation, unspecified, Z20.2 - Contact with and (suspected) exposure to infections with a predominantly sexual mode of transmission US pelvic and transvaginal Today Z30.431 - Encounter for routine checking of intrauterine contraceptive device Bacterial Vaginosis Panel Today N92.6 - Irregular menstruation, unspecified, Z20.2 - Contact with and (suspected) exposure to infections with a predominantly sexual mode of transmission Coding Level of Care Code Est Pt Level 3 (31553) Diagnoses Irregular menses N92.6 IUD surveillance Z30.431 Potential exposure to STD Z20.2
[2022-12-11 08:38] VITALS: BP 112/66; BMI 24.6
== END 2022-12-11 09:50 | disposition home or self-care (01) ==
PROVIDERS: PCP Family Medicine; Visit Provider Advanced Practice Midwife
DX: N92.6 Irregular menstruation, unspecified (principal); Z30.431 Encounter for routine checking of intrauterine contraceptive device; Z20.2 Contact with and (suspected) exposure to infections with a predominantly sexual mode of transmission
CPT/HCPCS: 99213

== ENCOUNTER 2023-01-26 16:24 | Outpatient (REF) | payer BC, SELFPAY ==
--- NOTE | ~2023-01-26 | US_ITS ---
EXAMINATION: US PELVIS CLINICAL INFORMATION: Check for IUD. COMPARISON: None available. TECHNIQUE: Ultrasound of the pelvis is performed using both transabdominal and transvaginal transducers along with Doppler. Transvaginal imaging is performed due to inadequate visualization transabdominally. FINDINGS: UTERUS: The uterus is anteverted and measures 7.6 x 3.6 x 5.3 cm. The double wall endometrial thickness could not be measured accurately as an IUD is present in the endometrial cavity in normal position. The uterus is smooth in contour and has normal myometrial echogenicity. No visible fibroid. Nabothian cysts are present in the cervix. ADNEXA: Both ovaries are visualized. There is normal color flow to the adnexa. There is no ovarian torsion. There is no pelvic ascites or fluid collection. Right ovary measures 1.1 x 2.3 x 2.3 cm for a volume of 3.0 mL. Left ovary measures 2.7 x 1.7 x 1.9 cm for a volume of 4.6 mL. US/US pelvic and transvaginal IMPRESSION: An IUD is present in the endometrial cavity in normal position.
== END 2023-01-26 16:25 | disposition home or self-care (01) ==
LOC: HO.US 16:24
PROVIDERS: PCP Family Medicine; Visit Provider Advanced Practice Midwife
DX: Z30.431 Encounter for routine checking of intrauterine contraceptive device (principal)
CPT/HCPCS: 76830; 76856

== ENCOUNTER → 2023-02-02 12:42 | Outpatient (BNVA) | payer BC, SELFPAY | PROVIDERS: PCP Family Medicine; Visit Provider Advanced Practice Midwife ==

== ENCOUNTER 2023-02-11 08:20 | Outpatient (REF) | payer BC, SELFPAY ==
[2023-02-11 11:10] LABS: TSH reflex Free T4 0.93 uIU/mL (0.32-4.0)
[2023-02-12 05:39] LABS: Follicle Stimulating Hormone 86.7 mIU/mL
== END 2023-02-11 08:21 | disposition home or self-care (01) ==
LOC: HO.10HDL 08:20
PROVIDERS: PCP Family Medicine; Visit Provider Advanced Practice Midwife
DX: E03.9 Hypothyroidism, unspecified (principal); N95.1 Menopausal and female climacteric states
CPT/HCPCS: 36415; 83001; 84443

== ENCOUNTER 2023-02-23 07:57 | Outpatient (AMB) | payer BC, SELFPAY ==
--- NOTE | 2023-02-23 08:01 | MHC.OFFVIS ---
Intake Vital Signs 02/23/23 08:06 Height 5 ft 2 in Weight 142 lb 3.17 oz BMI 26.0 BP 130/60 Blood Pressure Location Lt brachial Position Sitting Pulse 80 Pulse Source Pulse Oximeter Temp 97 F Temp Source Skin Pulse Oximetry (%) 98 Oxygen Delivery Method Room Air Intake Visit Reasons: RA Intake Note: Patient presents today to follow up on RA. Business Applications Analyst Required: No Accompanied by: Self / Same As Patient Allergies shellfish derived Allergy (Unknown, Verified 02/23/23 08:01) Unknown Erythromycin Allergy (Intermediate, Uncoded 02/23/23 08:01) hives HPI HPI Comments History of Present Illness Details The patient returns for evaluation of her rheumatoid arthritis. She remains on Humira 40 mg every 2 weeks. We had tried to taper her off the prednisone 1 mg daily by going to 1 mg every other day. She did that for a month or and then did end up stopping the prednisone. That went fine for about 3 weeks but then she awoke one morning with stiffness and pain in the elbows and knees. There was also some hand discomfort. She ended up taking the prednisone again 1 mg daily and symptoms have stabilized. She has no apparent side effects with the prednisone or the Humira. She was told by railroad commissioner that she was cherelle-menopausal. She did have a bone density earlier this year. She is not taking any other medications for pain right now. [facility] Medical History (Updated 02/23/23 @ 17:05 by Brent Nichols MD) Perimenopausal Carpal tunnel syndrome Seronegative rheumatoid arthritis History of hypothyroidism Hx of rheumatoid arthritis Surgical History Hx of hernia repair Social History Household Members: Spouse Housing: House Alcohol intake: current Alcohol intake frequency: a few times a week Alcohol type: wine Patient Tobacco Use Status: Never used Tobacco e-Cigarette/Vaping Use: Never Used Sexual orientation: Straight/Heterosexual Gender identity: Female Female Reproductive History Menstrual Age of Menarche: 13 Review of Systems Const Details: Negative for appetite change, weight change, fever, chills, malaise and fatigue Eyes Details: Negative for vision change, dry eyes,headaches and dizziness ENT Details: Negative for hearing change, tinnitus, oral ulcer, nose bleeds and oral dryness. Card Details: Negative chest pain, edema and syncope Resp Details: Negative for SOB, cough and wheezing GI Details: Negative indigestion/heartburn, nausea, abdominal pain, bowel changes, diarrhea, constipation and bloody stool. Endo Details: Negative for polyuria and polydypsia [place]/Lymph Details: Negative for excessive bruising or bleeding. Physical Exam Vital Signs: Last Vital Signs Temp 97 F 02/23/23 08:06 Pulse 80 02/23/23 08:06 BP 130/60 02/23/23 08:06 Pulse Ox 98 02/23/23 08:06 Oxygen Delivery Method Room Air 02/23/23 08:06 BMI result Body Mass Index 26.0 APPEARANCE: Patient in no acute distress EYES no redness, pupils equal and reactive to light, eyelids normal EXTREMITIES: No edema, no calf tenderness, normal peripheral pulses. NEURO: Oriented and alert x3. No focal weakness. Reflexes symmetric. Gait normal. SKIN: No inflammatory or neoplastic lesions. Normal color and turgor JOINT EXAM: Cervical Spine: Full range of motion without pain; no tenderness. Thoracic Spine:? No scoliosis.? No tenderness on palpation. Lumbar Spine:? Alignment normal.? Full range of motion without pain, no tenderness. Hands:? Right: Normal pain-free range of motion. There is some slight bony enlargement at the thumb IP but no tenderness. No areas of flexor tendon triggering, thenar atrophy or sensory loss. Left: Normal pain-free range of motion with some slight bony enlargement at the 2nd PIP and 5th DIP joints. There is no soft tissue swelling and none of the joints are actually tender today. There is no thenar atrophy or sensory loss.ness, swelling, increased warmth or erythema. Wrists:? Right: no pain with 90 degrees of flexion or extension. There is no tenderness but there may be some volar swelling. No redness or warmth. Left: Normal pain-free range of motion without tenderness, swelling, increased warmth or erythema. Elbows: Normal pain-free range of motion without tenderness, swelling, increased warmth or erythema. Shoulders:?? Full range of motion without pain. No tenderness, weakness, swelling, increased warmth or erythema. Hips:? Full range of motion without pain. Hip bursa:? No tenderness. Knees:?? Normal pain-free range of motion without tenderness, swelling, increased warmth or erythema.? There is no effusion or crepitation Ankles:? LEFT:? Normal pain-free range of motion.? No soft tissue swelling noted today. No tenderness, increased warmth or erythema. ? RIGHT:? Normal pain-free range of motion.? Swelling no swelling noted today. No tenderness, increased warmth or erythema. Feet: LEFT :? Normal pain-free range of motion with mild 1st MTP bony enlargement. There is some slight hallux valgus deformity but no tenderness in that region. Other joints are without tenderness, swelling, increased warmth or erythema.? Hallux valgus deformity 1st MTP. ? RIGHT: Right: There is some bony enlargement evidence of previous surgery at the 1st MTP. The 1st MTP has greater hallux valgus deformity and greater bony enlargement. It is minimally tender however. Other joints have normal pain-free range of motion without tenderness, swelling, increased warmth or erythema. ? 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 Plaquenil: 08/30/2018 -ineffective Methotrexate: failed oral and subcutaneous dates unknown Xeljanz: dates unknown Leflunomide: dates unknown - caused cough Enbrel: dates unknown Humira: April 2019- present Prednisone: 06/08/2018- present Code(s): M06.00 - Rheumatoid arthritis without rheumatoid factor, unspecified site Plan Rheumatoid arthritis with good control of synovitis with current regimen. We had an attempt with tapering off the prednisone. She was able to be off it for a few weeks but then morning stiffness in a few joints has come back. With resumption of prednisone she is back to baseline. We discussed that we could try some other additional medications, particularly others that she had tried before and did not have a side effect with such as hydroxychloroquine. That of course would still run the risk of ocular side effects and it is hard to weigh that against the potential risk possibilities of 1 mg daily prednisone. For now we will stay with just the Humira. She could continue with the prednisone 1 mg daily but perhaps stay with every other day a bit longer or take the 1 mg on a p.r.n. basis. Follow-up in 5 months is so seems reasonable. 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
[2023-02-23 08:06] VITALS: BP 130/60; PULSE 80; TEMP 36.1; O2SAT 98; BMI 26.0
== END 2023-02-23 08:21 | disposition home or self-care (01) ==
PROVIDERS: PCP Family Medicine; Visit Provider Internal Medicine Rheumatology
DX: Z79.620 Long term (current) use of immunosuppressive biologic (principal); Z79.52 Long term (current) use of systemic steroids; M06.00 Rheumatoid arthritis without rheumatoid factor, unspecified site
CPT/HCPCS: 99213

== ENCOUNTER → 2023-02-23 07:57 | Outpatient (BNVA) | payer BC, SELFPAY | PROVIDERS: PCP Family Medicine; Visit Provider Internal Medicine Rheumatology ==

== ENCOUNTER 2023-08-25 07:59 | Outpatient (AMB) | payer BC, SELFPAY ==
--- NOTE | 2023-08-25 08:14 | MHC.OFFVIS ---
Vital Signs 08/25/23 08:14 Height 5 ft 2 in Intake Visit Reasons: ra/LVM Intake Note: Patient last seen 02/22/[address] Nichols, presents today for follow up and test results. Reports pain in bl hands and wrists. Crowd Controller Required: No Accompanied by: Self / Same As Patient Allergies shellfish derived Allergy (Unknown, Verified 08/25/23 08:20) Unknown Erythromycin Allergy (Intermediate, Uncoded 08/25/23 08:20) hives HPI Comments Details: Ms. Andrea 52 yoF returns for evaluation of her rheumatoid arthritis. She remains on Humira 40 mg every 2 weeks. She had a sinus infection in May and held one dose of Humira. She flared and has not fully recovered from. She reports her wrist and hands are very tender. She had increased to 3 mg Prednisone to help with the flare but still has not recovered as quickly as she normally would and the symptoms are still present today. --She was told by payroll director that she was cherelle-menopausal. --She did have a bone density earlier this year. She is not taking any other medications for pain right now. --tender ulnar styloids --MCPS 2 and 3rd, both --left olecronon bursitis - swelling mild and tender. 02/23/2023 The patient returns for evaluation of her rheumatoid arthritis. She remains on Humira 40 mg every 2 weeks. We had tried to taper her off the prednisone 1 mg daily by going to 1 mg every other day. She did that for a month or and then did end up stopping the prednisone. That went fine for about 3 weeks but then she awoke one morning with stiffness and pain in the elbows and knees. There was also some hand discomfort. She ended up taking the prednisone again 1 mg daily and symptoms have stabilized. She has no apparent side effects with the prednisone or the Humira. She was told by payroll director that she was cherelle-menopausal. She did have a bone density earlier this year. She is not taking any other medications for pain right now. [facility] Medical History (Updated 08/25/23 @ 09:11 by JW Turner-) Osteopenia of femoral neck Osteopenia Perimenopausal Carpal tunnel syndrome Seronegative rheumatoid arthritis History of hypothyroidism Hx of rheumatoid arthritis Surgical History Hx of hernia repair Social History Household Members: Spouse Housing: House Alcohol intake: current Alcohol intake frequency: a few times a week Alcohol type: wine Patient Tobacco Use Status: Never used Tobacco e-Cigarette/Vaping Use: Never Used Sexual orientation: Straight/Heterosexual Gender identity: Female Female Reproductive History Menstrual Age of Menarche: 13 Review of Systems Const All systems reviewed & are unremarkable except as noted in HPI and below Physical Exam APPEARANCE: Patient in no acute distress EYES no redness, eyelids normal EXTREMITIES: No edema, no calf tenderness, normal peripheral pulses. NEURO: Oriented and alert x3. No focal weakness. Reflexes symmetric. Gait normal. SKIN: No inflammatory or neoplastic lesions. Normal color and turgor JOINT EXAM: Cervical Spine: Full range of motion without pain; no tenderness. Thoracic Spine:? No scoliosis.? No tenderness on palpation. Lumbar Spine:? Alignment normal.? Full range of motion without pain, no tenderness. Hands:? Generalized tenderness to IP joints. Bilateral 2nd and 3rd MCP swelling with increased tenderness. Right: Normal pain-free range of motion. There is some slight bony enlargement at the thumb IP but no tenderness. No areas of flexor tendon triggering, thenar atrophy or sensory loss. Left: Normal pain-free range of motion with some slight bony enlargement at the 2nd PIP and 5th DIP joints. There is no thenar atrophy or sensory loss. Wrists:? Right: no pain with 90 degrees of flexion or extension. There is tenderness and still some volar swelling. No redness or warmth. Left: Normal pain-free range of motion without tenderness, swelling, increased warmth or erythema. Elbows: Normal pain-free range of motion with left tenderness, swelling, increased warmth and erythema. Shoulders:?? Full range of motion without pain. No tenderness, weakness, swelling, increased warmth or erythema. Hips:? Full range of motion without pain. Hip bursa:? No tenderness. Knees:?? Normal pain-free range of motion without tenderness, swelling, increased warmth or erythema.? There is no effusion or crepitation Ankles:? LEFT:? Normal pain-free range of motion.? No soft tissue swelling noted today. No tenderness, increased warmth or erythema. ? RIGHT:? Normal pain-free range of motion.? Swelling no swelling noted today. No tenderness, increased warmth or erythema. Feet: LEFT :? Normal pain-free range of motion with mild 1st MTP bony enlargement. There is some slight hallux valgus deformity but no tenderness in that region. Other joints are without tenderness, swelling, increased warmth or erythema.? Hallux valgus deformity 1st MTP. ? RIGHT: Right: There is some bony enlargement evidence of previous surgery at the 1st MTP. The 1st MTP has greater hallux valgus deformity and greater bony enlargement. It is minimally tender however. Other joints have normal pain-free range of motion without tenderness, swelling, increased warmth or erythema. ? 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 Plaquenil: 08/30/2018 -ineffective Methotrexate: failed oral and subcutaneous dates unknown Xeljanz: dates unknown Leflunomide: dates unknown - caused cough Enbrel: dates unknown Humira: April 2019- present Prednisone: 06/08/2018- present Code(s): M06.00 - Rheumatoid arthritis without rheumatoid factor, unspecified site Category: Medical (4) Osteopenia of femoral neck: Code(s): M85.859 - Other specified disorders of bone density and structure, unspecified thigh Category: Medical Qualifiers: Laterality: left Qualified Code(s): M85.852 - Other specified disorders of bone density and structure, left thigh Plan #Rheumatoid arthritis with good control of synovitis with current regimen but current active disease with marked tenderness and soft tissue swelling. Reviewing her PE from last visit in February, I can also see that some of the same symptoms are present. Given that she has been in a flare (new findings on today's PE) since may and still symptoms from last visit, it does appear that Q2W Humira is not adequate. We will increase to weekly HUMIRA 40 mg and for now we will stay with the Humira. She could continue with the prednisone 1 to 3 mg daily PRN. #[facility] Use: Need updated labs, will order for today and next visit. Patient knows to hold the HUMIRA for fevers, infections, surgery or non-healing wounds. We discussed if she has recurring infections on HUMIRA (up to 3 in row) we will consider to change the medication. We discussed monitoring labs for cytopenias. No new side effects expected with increased dosing, but some increased risk for infection. #Osteopenia: -1.2 Femoral neck (05/2022). Continue Vitamin D 50mcg QD. I spent 30 minutes reviewing chart, evaluating patient and documenting Follow-up in 6 months is so seems reasonable. Orders: Orders C Reactive Protein 6 Months M06.00 - Rheumatoid arthritis without rheumatoid factor, unspecified site, Z79.620 - [facility] (current) use of immunosuppressive biologic Complete Blood Count Auto Diff Today M06.00 - Rheumatoid arthritis without rheumatoid factor, unspecified site, Z79.620 - terminal system operator (current) use of immunosuppressive biologic Erythrocyte Sedimentation Rate 6 Months M06.00 - Rheumatoid arthritis without rheumatoid factor, unspecified site, Z79.620 - terminal system operator (current) use of immunosuppressive biologic Comprehensive Met. Panel 6 Months M06.00 - Rheumatoid arthritis without rheumatoid factor, unspecified site, Z79.620 - [facility] (current) use of immunosuppressive biologic Complete Blood Count Auto Diff 6 Months M06.00 - Rheumatoid arthritis without rheumatoid factor, unspecified site, Z79.620 - [facility] (current) use of immunosuppressive biologic Erythrocyte Sedimentation Rate Today M06.00 - Rheumatoid arthritis without rheumatoid factor, unspecified site, Z79.620 - [facility] (current) use of immunosuppressive biologic Comprehensive Met. Panel Today M06.00 - Rheumatoid arthritis without rheumatoid factor, unspecified site, Z79.620 - terminal system operator (current) use of immunosuppressive biologic C Reactive Protein Today M06.00 - Rheumatoid arthritis without rheumatoid factor, unspecified site, Z79.620 - [facility] (current) use of immunosuppressive biologic Medications: Changed From adalimumab (Humira(CF) Pen) 40 mg (0.4 mL) subcut Q2W 2 ea 5RF M06.00 - Rheumatoid arthritis without rheumatoid factor, unspecified site To adalimumab (Humira(CF) Pen) 40 mg (0.4 mL) subcut QWEEK 4 ea 5RF M06.00 - Rheumatoid arthritis without rheumatoid factor, unspecified site Coding Level of Care Code Est Pt Level 4 (69002) Complex EM visit Add On G2211 Diagnoses [facility] (current) use of immunosuppressive biologic Z79.620 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
== END 2023-08-25 08:52 | disposition home or self-care (01) ==
PROVIDERS: PCP Family Medicine; Visit Provider Nurse Practitioner Family
DX: Z79.620 Long term (current) use of immunosuppressive biologic (principal); Z79.52 Long term (current) use of systemic steroids; M06.00 Rheumatoid arthritis without rheumatoid factor, unspecified site; M85.852 Other specified disorders of bone density and structure, left thigh
CPT/HCPCS: 99214

== ENCOUNTER → 2023-08-25 07:59 | Outpatient (BNVA) | payer BC, SELFPAY | PROVIDERS: PCP Family Medicine; Visit Provider Nurse Practitioner Family ==

== ENCOUNTER 2023-08-27 08:22 | Outpatient (REF) | payer BC, SELFPAY ==
[2023-08-27 10:42] LABS: MANUAL DIFF FLAG NO
[2023-08-27 10:51] LABS: Basophils Absolute Auto 0.1 X10*3/uL (0.0-0.2); Basophils Percent Auto 0.6 % (0-2); Eosinophils Absolute Auto 0.3 X10*3/uL (0.0-0.4); Eosinophils Percent Auto 3.6 % (0-4); Hematocrit 36.8 % (37.0-47.0); Hemoglobin 12.5 g/dl (12.0-16.0); Imm Gran Abs Auto 0.03 X10*3/uL (0.00-0.03); Imm Gran Pct Auto 0.4 % (0.0-0.4); Lymphocytes Absolute Auto 3.4 X10*3/uL (1.2-4.9); Mean Corpuscular Hemoglobin 30.9 pg (27.0-33.0); Mean Corpuscular Volume 91.1 fL (80.0-98.0); Monocytes Absolute Auto 0.8 X10*3/uL (0.1-1.2); Monocytes Percent Auto 9.6 % (2-11); Neutrophils Absolute Auto 3.3 x10*3/uL (2.0-8.3); Neutrophils Percent Auto 41.8 % (45-73); Platelet Count 185 X10*3/uL (160-400); Red Blood Count 4.04 X10*6/uL (4.20-5.50); Red Cell Distribution Width 13.2 % (11.0-16.0); White Blood Count 7.8 X10*3/uL (4.8-10.8)
[2023-08-27 11:06] LABS: Alanine Aminotransferase 17 U/L (0-31); Albumin Level 4.1 g/dL (3.5-5.0); Alkaline Phosphatase 54 U/L (39-117); Anion Gap 11 (12-20); Aspartate Amino Transferase 20 U/L (5-31); Bilirubin Total 0.5 mg/dL (0.0-1.0); Blood Urea Nitrogen 18 mg/dL (9-16); C Reactive Protein 1.56 mg/dL (< or = 0.50); Calcium 9.2 mg/dL (8.4-10.2); Carbon Dioxide 24 mmol/L (22-29); Chloride 106 mmol/L (96-108); Estimated Glomerular Filt Rate > 60; Glucose Random 96 mg/dL (60-115); Potassium 3.8 mmol/L (3.3-5.1); Sodium 137 mmol/L (135-145); Total Protein 7.3 g/dL (6.5-8.0)
[2023-08-27 11:43] LABS: Erythrocyte Sedimentation Rate 6 MM/HR (0-20)
== END 2023-08-27 08:23 | disposition home or self-care (01) ==
LOC: HO.10HDL 08:22
PROVIDERS: Visit Provider Nurse Practitioner Family
DX: M06.00 Rheumatoid arthritis without rheumatoid factor, unspecified site (principal); Z79.620 Long term (current) use of immunosuppressive biologic
CPT/HCPCS: 36415; 80053; 85025; 85652; 86140

== ENCOUNTER 2023-11-24 07:55 | Outpatient (AMB) | payer BC, SELFPAY ==
--- NOTE | 2023-11-24 07:59 | MHC.OFFVIS ---
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 She is doing well with no concerns. Attempting to eat a healthy diet, finding it challenging to lose the 6-7 lb. Has increased her proteins and is gluten free. She walks daily. Currently sexually active. Denies any vaginal dryness or irritation. Current IUD user with occasional bleeding, replaced 02/2021. FSH 01/2023=86.7. Last pap smear; 2022. Last mammogram; 2022. Colonoscopy is being scheduled at [facility] later this year. Denies any family history of breast, ovarian or colon cancer. [facility] Medical History (Updated 11/24/23 @ 08:42 by Kendy Woodall CNM) Osteopenia of femoral neck Osteopenia Carpal tunnel syndrome Seronegative rheumatoid arthritis History of hypothyroidism Hx of rheumatoid arthritis Surgical History Hx of hernia repair Social History Household Members: Spouse Housing: House Alcohol intake: current Alcohol intake frequency: a few times a week Alcohol type: wine Patient Tobacco Use Status: Never used Tobacco e-Cigarette/Vaping Use: Never Used Sexual orientation: Straight/Heterosexual Gender identity: Female Female Reproductive History Menstrual Age of Menarche: 13 control method: progestin IUCD (Mirena 03/04) Total pregnancies: 3 Full term: 3 Number of Living Children: 3 Date of last pap smear: 11/05/22 (neg pap and hpv) Date of Mammogram: 05/27/22 (Birad 1) Date of last Bone Density Screenin05/27/22 Review of Systems Const All systems reviewed & are unremarkable except as noted in HPI and below Reports as per HPI Eyes Reports no additional complaints ENT Reports no additional complaints Card Reports no additional complaints Resp Reports no additional complaints GI Reports as per HPI and Reports no additional complaints Reports as per HPI Musc Reports no additional complaints Skin/Breast Reports as per HPI Neuro Reports no additional complaints Psych Reports no additional complaints Endo Reports no additional complaints Selwyn/Lymph Reports no additional complaints Aller/Immun Reports no additional complaints Physical Exam Vital Signs: BMI result Body Mass Index 26.5 Const General: cooperative, healthy appearing, no acute distress, well developed and alert Orientation/consciousness: patient oriented x3 HEENT Head: Yes normal to inspection Eyes General: appearance normal, both eyes and all related structures Neck Neck: Yes normal visual inspection Thyroid: Thyroid normal Chest Chest palpation & inspection: normal inspection of the chest and other (no puckering, dimpling, peau de orange, retraction, discharge, masses) Breast/axilla inspection: normal inspection of the breasts Breast/axilla palpation: normal palpation of the breasts Resp Effort & Inspection: normal respiratory effort GI Inspection: Yes normal to inspection Palpation (GI): Soft to palpation Rectal Exam - Female: deferred General: Yes bladder normal to palpation External Female Exam: normal external appearance and normal appearance of the urethra Speculum Exam - Vagina: normal appearance of the vagina, normal palpation and normal vaginal discharge Speculum Exam - Cervix: normal appearance of the cervix, normal palpation and Other cervical findings present (IUD strings present) Bimanual exam- vagina & uterus: normal bimanual exam, normal palpation, uterine size normal, bladder normal to palpation, normal palpation and non-tender Bimanual Exam- Adnexa, other: no masses Skin General skin exam: no rashes or lesions noted Rashes: no rashes Neuro General: patient oriented x3 Cognition (Neuro): normal cognition Extrem General: Yes normal to inspection Psych Attitude: cooperative Thought process: Normal thought process present Assessment & Plan Assessment & Plan (1) Encounter for well woman exam with routine gynecological exam: Code(s): Z01.419 - Encounter for gynecological examination (general) (routine) without abnormal findings Category: Medical Plan Discussed: Current recommendations for pap smears per ASCCP guidelines. Breast awareness, periodic self breast exams and yearly mammogram. Maintain a healthy lifestyle, well balanced diet, and routine exercise. Plan EMB, pre-procedure counseling- to have something to eat and drink, take an [id number] ibuprofen, if no contraindications 1 hour before her appointment. Patient verbalizes understanding and agrees to the plan of care. She was given opportunity to ask questions and all questions were answered to the best of my ability. 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 This note is constructed using voice recognition software. While every effort has been made to ensure accuracy, bakery helper errors may have been included. Coding Level of Care Code Est Pt Prev Care 40-64y(73926) Diagnoses Encounter for well woman exam with routine gynecological exam Z01.419
[2023-11-24 08:00] VITALS: BP 100/66; BMI 26.5
== END 2023-11-24 08:57 | disposition home or self-care (01) ==
PROVIDERS: PCP Family Medicine; Visit Provider Advanced Practice Midwife
DX: Z01.419 Encounter for gynecological examination (general) (routine) without abnormal findings (principal)
CPT/HCPCS: 99396

== ENCOUNTER → 2023-11-24 07:55 | Outpatient (BNVA) | payer BC, SELFPAY | PROVIDERS: PCP Family Medicine; Visit Provider Advanced Practice Midwife ==

== ENCOUNTER 2024-02-21 08:09 | Outpatient (AMB) | payer BC, SELFPAY ==
--- NOTE | 2024-02-21 08:17 | MHC.OFFVIS ---
Vital Signs 02/21/24 08:18 Height 5 ft 2 in Weight 153 lb 3.54 oz BMI 28.0 BP 100/62 Blood Pressure Location Rt brachial Position Sitting Pulse 75 Pulse Source Pulse Oximeter Pulse Oximetry (%) 98 Oxygen Delivery Method Room Air Intake Visit Reasons: RA/ With Flare increase freg od HuMIRA/CM Intake Note: Patient presents today for follow up on RA, lab work. She was last seen in the office on 08/25/23 by Jeanie Meyer. Allergies shellfish derived Allergy (Unknown, Verified 02/21/24 08:19) Unknown Erythromycin Allergy (Intermediate, Uncoded 02/21/24 08:19) hives Medication List - Last Reconciled 02/21/24 by Yaz Nieves MD adalimumab (Humira(CF) Pen) 40 mg (0.4 mL) subcut QWEEK cholecalciferol (vitamin D3) 50 mcg PO DAILY levonorgestrel (Mirena) intrauterine levothyroxine 88 mcg PO DAILY prednisone 5 mg PO DAILY PRN rizatriptan take 1 tablet at onset of headache; if no relief, may repeat 1 tablet after at least 2 hrs PO HPI Comments Details: Patient is a 53-year-old female with hypothyroidism, seronegative rheumatoid arthritis, osteopenia of left femoral neck here today for follow up Interval History: Last seen 08/25/2023 with Jeanie Meyer. At that visit she was still recovering from a flare of her disease she has secondary to holding her Humira in the setting of sinus infection in May 2023. The decision was made to increase her Humira from every 2 weeks to weekly. Patient states that she felt changing the Humira from every 2 weeks to weekly has overall improved her joints. She is currently more stable and has been trying to extend her dose to every 10 days which seems to be working for her She was also on prednisone 5 mg daily at the height of her joint pain and she has been reducing this to 2.5 mg Morning stiffness 15 minutes Walks most days of the week Rheumatologic History: Patient initially diagnosed with seronegative rheumatoid arthritis in 1999 while living in [place] Patient tried methotrexate (oral and subQ), Enbrel, leflunomide, sulfasalazine, Xeljanz without any response Plaquenil: 08/30/2018 -ineffective Methotrexate: failed oral and subcutaneous dates unknown Xeljanz: dates unknown Leflunomide: dates unknown - caused cough Enbrel: dates unknown Humira: April 2019- present Prednisone: 06/08/2018- present Currently on Humira Current Rheumatology Medication(s): Humira 40mg SC every 7-10 days Prednisone 2.5 mg daily [facility] Medical History (Updated 11/24/23 @ 08:42 by Kendy Woodall CNM) Osteopenia of femoral neck Osteopenia Carpal tunnel syndrome Seronegative rheumatoid arthritis History of hypothyroidism Hx of rheumatoid arthritis Surgical History Hx of hernia repair Social History Household Members: Spouse Housing: House Alcohol intake: current Alcohol intake frequency: a few times a week Alcohol type: wine Patient Tobacco Use Status: Never used Tobacco e-Cigarette/Vaping Use: Never Used Sexual orientation: Straight/Heterosexual Gender identity: Female Female Reproductive History Menstrual Age of Menarche: 13 Review of Systems Const Details: Review of Systems Constitutional: Denies fever, chills, weight loss ENT: Denies vision changes, eye pain or eye redness, dental caries, dry mouth GI: Denies nausea, vomiting, diarrhea, abdominal pain, change in BM Pulm: Denies SOB, HICKS, hemoptysis, wheezing Cards: Denies chest pain, palpitations Skin: Denies Raynaud's, rash, nail changes, photosensitivity, FIBER OPTICS TECHNICIAN: Denies headaches, weakness, paresthesias, recurrent falls MSK: as per HPI All other systems reviewed and are unremarkable except noted above Physical Exam Physical Examination CONSTITUITIONAL Patient alert and cooperative. Well appearing and in no apparent painful distress HEENT Conjunctiva and sclera clear. ?Pupils equal round and reactive to light. ?No lymphadenopathy. ?Normal dentition. No oral or nasal ulcers noted. No evidence of discoid rash to the kylee of ears CHEST/RESPIRATORY SYSTEM Normal respiratory effort and able to speak in complete sentences. ?Clear to auscultation bilaterally. ?No crackles, rales, rhonchi, wheezes heard. CARDIAC SYSTEM Regular rate and rhythm. ?S1 and S2 heard no murmurs. ?Radial pulses intact bilaterally MSK Hands: ?Good interior design director strength bilaterally - 5/5. ?No deformities noted. ?No synovitis noted to the MCPs, PIPs or DIPs. ?No tenderness to palpation of these joints. Wrists: ?Full range of motion at the wrists without pain. ?No tenderness to palpation or synovitis noted to the wrists. Elbows: Full range of motion without pain. No tenderness, weakness, swelling, increased warmth or erythema. Shoulders: Full range of motion without pain. No tenderness, weakness, swelling, increased warmth or erythema. Hips: Full range of motion without pain. Hip bursa: No tenderness to palpation Knees: ?Full range of motion. ?No tenderness, swelling, increased warmth or erythema.?No effusion or crepitations Ankles: Full range of motion. ?No tenderness, swelling, increased warmth or erythema.? Feet: ?Negative squeeze test. ?No tenderness to palpation or swelling of the MTPs. Tender points:??No tenderness to palpation of the neck, shoulders, chest, elbows, hips, buttocks or knees. SKIN Skin intact without rashes. Results Reviewed Results Reviewed: Laboratory Tests 06/08/18 10/13/22 08/27/23 13:16 08:05 08:25 WBC 7.8 RBC 4.04 L Hgb 12.5 Hct 36.8 L Plt Count 185 ESR 6 Sodium 137 Potassium 3.8 Chloride 106 Carbon Dioxide 24 BUN 18 H Creatinine 0.71 AST 20 ALT 17 Alkaline Phosphatase 54 C-Reactive Protein 0.13 1.56 H Rheumatoid Factor < 15.0 Cycl Citrul Peptide IgG <16 THI Screen Positive H THI Titer 1:80 H Assessment & Plan Assessment & Plan (1) Seronegative rheumatoid arthritis: Comment: Diagnosed in 1999. Plaquenil: 08/30/2018 -ineffective Methotrexate: failed oral and subcutaneous dates unknown Xeljanz: dates unknown Leflunomide: dates unknown - caused cough Enbrel: dates unknown Humira: April 2019- present Prednisone: 06/08/2018- present Code(s): M06.00 - Rheumatoid arthritis without rheumatoid factor, unspecified site Category: Medical Plan: #Seronegative RA Patient currently in remission Plan - Continue humira 40mg every 7- 10 days - Decrease to prednisone 1mg - CBC, CMP, ESR, CRP - XR Hands and Wrists, flex/ext C-spine - RTC 4 months (2) Osteopenia of femoral neck: Code(s): M85.859 - Other specified disorders of bone density and structure, unspecified thigh Category: Medical Qualifiers: Laterality: left Qualified Code(s): M85.852 - Other specified disorders of bone density and structure, left thigh Plan: #Osteopenia left femoral neck No falls or fractures since last visit Overall stable Plan - Check Vit D - DEXA 2024 - Encouraged weight bearing exercises - Encouraged Calcium intake daily (3) rn [facility] (current) use of immunosuppressive biologic: Code(s): Z79.620 - prison (current) use of immunosuppressive biologic Category: Medical Plan: #Long-term Use of TNF Inhibitors: Humira Discussed with the patient the benefits and risks of TNF inhibitors for the management of the rheumatic condition Benefits include reduce pain, maintenance of remission and reduction of flares as well as ?progression of the disease Risks include injection sites/infusion reactions, serious infections (such as bacterial infections, opportunistic infections), malignancy, delaminating syndromes, autoimmune phenomena, CHF exacerbations, palmar plantar psoriasis and cytopenias Recommended rotating injection sites, and holding medication during and for up to 1 week after resolution of a febrile illness or open skin wound (4) rn wom[facility] systemic steroid user: Code(s): Z79.52 - prison (current) use of systemic steroids Category: Medical Plan: #Long-term Use of Steroids Discussed with patient the risks and benefits of steroid for managing the rheumatic condition Benefits include: - Reduced pain, improved mobility, increased participation in activities, and decreased progression of disease Risks include: - GI upset, potential ultrasound worsening or formation (especially in patients > 65 years old), elevated blood pressure/worsening hypertension, elevated blood sugar/worsening diabetes control, worsening of bone density, elevated lipids/worsening triglycerides, cataract formation, weight gain Recommended using proton pump inhibitors (PPIs) for the duration of steroid use to reduce the risk of gastric ulcers and vitamin-D daily to reduce the risk of osteoporosis Labs checked: ?A1c, T spot, hepatitis-B and C serologies Pneumocystis jiroveci prophylaxis: ?Patient with risk factors including steroids greater than 50 mg for more than 30 days, age greater than 60 years, and lung involvement from underlying rheumatic disease requires prophylaxis and will be given so Plan I spent 20 minutes reviewing the record and labs, seeing the patient, discussing the treatment plan and documenting in the medical record Orders: Orders Comprehensive Met. Panel Today M06.00 - Rheumatoid arthritis without rheumatoid factor, unspecified site C Reactive Protein Today M06.00 - Rheumatoid arthritis without rheumatoid factor, unspecified site Vitamin D 25-OH (D2 and D3) Today M06.00 - Rheumatoid arthritis without rheumatoid factor, unspecified site XR hand wrist LT Today M06.00 - Rheumatoid arthritis without rheumatoid factor, unspecified site XR cervical spine w flex/ext Today M06.00 - Rheumatoid arthritis without rheumatoid factor, unspecified site XR hand wrist RT Today M06.00 - Rheumatoid arthritis without rheumatoid factor, unspecified site Complete Blood Count Auto Diff Today M06.00 - Rheumatoid arthritis without rheumatoid factor, unspecified site Erythrocyte Sedimentation Rate Today M06.00 - Rheumatoid arthritis without rheumatoid factor, unspecified site Medications: New prednisone 1 mg PO DAILY 90 tabs 1RF M06.00 - Rheumatoid arthritis without rheumatoid factor, unspecified site Discontinued prednisone Discontinued Reason: None 5 mg PO DAILY PRN 30 tabs 0RF pain M06.00 - Rheumatoid arthritis without rheumatoid factor, unspecified site Coding Level of Care Code Est Pt Level 3 (76525) Complex EM visit Add On G2211 Diagnoses Seronegative rheumatoid arthritis M06.00 Osteopenia of neck of left femur M85.852 Laterality: left prison (current) use of immunosuppressive biologic Z79.620 prison systemic steroid user Z79.52
[2024-02-21 08:18] VITALS: BP 100/62; PULSE 75; O2SAT 98; BMI 28.0
--- OUTSIDE RECORDS SUMMARY | 2024-02-23 12:48 | XMS_ITS | Patient Health Record ---
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 Name Role Phone Deyvi Carlin MD Primary Care Provider Dell Zamorano Unavailable [phone] Allergies Allergen (clinical drug ingredient) Drug/Non Drug Allergy documented on EMR Reaction Allergy Type Onset Date Status erythromycin Erythromycin hives Drug Allergy A ctive Shellfish (FN) Shellfish-derived Products Unknown Drug Allergy Active Reason For Referral No Information Medications Medication SIG (Take, Route, Frequency, Duration) Notes Start Date End Date Status Rizatriptan Benzoate Active Vitamin D3 50 MCG (1999) 1 capsule Orally Once a day for 30 day(s) Active Levothyroxine Sodium 88 MCG 1 tablet in the morning on an empty stomach Orally Once a day for 30 day(s) Active predniSONE 2 MG 1 tablet Orally Once a day Active Ciclopirox 0.77 % 1 application to affected area Externally Twice a day for 365 days Active LamISIL 250 MG 1 tablet Orally Once a day for 30 days Active Meloxicam 15 MG 1 tablet Orally Once a day for 30 day(s) Not-Taking Humira Pen 40 MG/0.8ML as directed Subcutaneous Active Mirena Control Active Immunizations Vaccine Route Administration Date Status Comme nts COVID-19 Pfizer BioNTech Vaccine Unknown 02/19/2021 Administered 1st 06/07/20 2nd 06/28/20 Social History Tobacco Use: Social History Observation Description Date Details (start date - stop date) Never Smoker NA - NA Tobacco Use/Smoking Question Answer Notes Are you a: nonsmoker Alcohol Screen Question Answer Notes Did you have a drink contain ing alcohol in the past year? Yes How often did you have a dri nk containing alcohol in the past year? Monthly or less (1 point) Points 1 Interpretation Negative Tobacco use other than smoking: Question Answer Notes Are you an other tobacco user? No Problems Problem Type SNOMED Code ICD Code Onset Dates Problem Status W/U Status Risk Notes Problem Tinea unguium (925703998) Tinea unguium (B35.1) Active confirmed Plan Of Treatment Pending Test Test Name Order Date *Liver Function Test (LFT) 01/13/2022 *Liver Function Test (LFT) 04/07/2022 Insurance Providers Payer Name Payer Address Payer Phone Subscriber Number Group Number Insured Name Patient Relationship to Insured Coverage Start Date Coverage End Date [facility] [address] [place] [address] [id number] Karey Andrea Self - patient is the insured Medical (General) History Medical History History ICD Code Hypothyroidism Rheumatoid arthritis Headaches/Migraines Chicken pox Surgical History Surgery Date(Month/Year) carpal tunnel surgery Hernia Repair 2011
== END 2024-02-21 08:41 | disposition home or self-care (01) ==
PROVIDERS: PCP Family Medicine; Visit Provider Student in an Organized Health Care Education/Training Program
DX: M06.00 Rheumatoid arthritis without rheumatoid factor, unspecified site (principal); M85.852 Other specified disorders of bone density and structure, left thigh; Z79.620 Long term (current) use of immunosuppressive biologic; Z79.52 Long term (current) use of systemic steroids
CPT/HCPCS: 99213

== ENCOUNTER → 2024-02-21 08:09 | Outpatient (BNVA) | payer BC, SELFPAY | PROVIDERS: PCP Family Medicine; Visit Provider Student in an Organized Health Care Education/Training Program ==

== ENCOUNTER 2024-03-02 11:22 | Outpatient (REF) | payer BC, SELFPAY ==
--- OUTSIDE RECORDS SUMMARY | 2024-03-02 11:26 | XMS_ITS | Patient Health Record ---
Author Organization [facility] Address [address] [place] [address] Care Team Providers Care Content Editor Name Role Phone Deyvi Carlin MD Primary Care Provider Dell Zamorano Unavailable [phone] Allergies Allergen (clinical drug ingredient) Drug/Non Drug [...] W/U Status Risk Notes Problem Tinea unguium (205637680) Tinea unguium (B35.1) Active confirmed Plan Of Treatment Pending Test Test Name Order Date *Liver Function Test (LFT) 01/13/2022 *Liver Function Test (LFT) 04/07/2022 Insurance Providers Payer Name Payer Address Payer Phone Subscriber Number Group Number Insured Name Patient Relationship to Insured Coverage Start Date Coverage End Date [facility] [address] [place] [address] [id number] Karey Andrea Self - patient is the insured Medical (General) History Medical History History ICD Code Hypothyroidism Rheumatoid arthritis Headaches/Migraines Chicken pox Surgical History Surgery Date(Month/Year) carpal tunnel surgery Hernia Repair 2011
[2024-03-02 12:56] LABS: MANUAL DIFF FLAG NO
[2024-03-02 13:07] LABS: Basophils Percent Auto 0.5 % (0-2); Eosinophils Absolute Auto 0.3 X10*3/uL (0.0-0.4); Eosinophils Percent Auto 4.3 % (0-4); Hematocrit 38.2 % (37.0-47.0); Imm Gran Abs Auto 0.01 X10*3/uL (0.00-0.03); Imm Gran Pct Auto 0.2 % (0.0-0.4); Lymphocytes Absolute Auto 2.7 X10*3/uL (1.2-4.9); Lymphocytes Percent Auto 45.1 % (20-40); Mean Corpuscular Hemoglobin 30.7 pg (27.0-33.0); Mean Corpuscular Volume 90.3 fL (80.0-98.0); Mean Platelet Volume 10.8 fL (9.4-12.3); Monocytes Absolute Auto 0.4 X10*3/uL (0.1-1.2); Monocytes Percent Auto 6.8 % (2-11); Neutrophils Absolute Auto 2.5 x10*3/uL (2.0-8.3); Neutrophils Percent Auto 43.1 % (45-73); Platelet Count 177 X10*3/uL (160-400); Red Blood Count 4.23 X10*6/uL (4.20-5.50); Red Cell Distribution Width 12.5 % (11.0-16.0); White Blood Count 5.9 X10*3/uL (4.8-10.8)
[2024-03-02 13:35] LABS: Alanine Aminotransferase 34 U/L (0-31); Albumin Level 4.3 g/dL (3.5-5.0); Alkaline Phosphatase 51 U/L (39-117); Anion Gap 9 (12-20); Aspartate Amino Transferase 33 U/L (5-31); Bilirubin Total 0.5 mg/dL (0.0-1.0); Blood Urea Nitrogen 30 mg/dL (9-16); C Reactive Protein 0.11 mg/dL (< or = 0.50); Carbon Dioxide 26 mmol/L (22-29); Chloride 108 mmol/L (96-108); Estimated Glomerular Filt Rate > 60; Glucose Random 107 mg/dL (60-115); Potassium 3.9 mmol/L (3.3-5.1); Sodium 139 mmol/L (135-145); Total Protein 7.7 g/dL (6.5-8.0)
[2024-03-02 14:15] LABS: Erythrocyte Sedimentation Rate 4 MM/HR (0-20)
== END 2024-03-02 11:23 | disposition home or self-care (01) ==
LOC: HO.10HDL 11:22
PROVIDERS: Visit Provider Nurse Practitioner Family
DX: M06.00 Rheumatoid arthritis without rheumatoid factor, unspecified site (principal); Z79.620 Long term (current) use of immunosuppressive biologic
CPT/HCPCS: 36415; 80053; 85025; 85652; 86140

== ENCOUNTER 2024-06-19 09:16 | Outpatient (AMB) | payer BC, SELFPAY ==
--- NOTE | 2024-06-19 09:33 | A.OFFVIS_ITS ---
Vital Signs 06/19/24 09:37 Height 5 ft 2 in Weight 156 lb 8.451 oz BMI 28.6 BP 120/70 Blood Pressure Location Lt brachial Position Sitting Pulse 76 Pulse Source Pulse Oximeter Pulse Oximetry (%) 98 Oxygen Delivery Method Room Air Intake Visit Reasons: Follow up Intake Note: Patient presents today for follow up. Allergies shellfish derived Allergy (Unknown, Verified 06/19/24 09:36) Unknown Erythromycin Allergy (Intermediate, Uncoded 02/21/24 08:19) hives Medication List - Last Reconciled 06/19/24 by Yaz Nieves MD adalimumab (Humira(CF) Pen) 40 mg (0.4 mL) subcut QWEEK cholecalciferol (vitamin D3) 50 mcg PO DAILY levonorgestrel (Mirena) intrauterine levothyroxine 88 mcg PO DAILY prednisone 2 mg PO DAILY rizatriptan take 1 tablet at onset of headache; if no relief, may repeat 1 tablet after at least 2 hrs PO HPI Comments Details: Patient is a 53-year-old female with hypothyroidism, seronegative rheumatoid arthritis, osteopenia of left femoral neck here today for follow up Interval History: Last seen 02/21/2024 with me. At that time she was feeling more improved after increasing her Humira to 7-10 days. Able to decrease her prednisone to 2.5 daily Had a 1 week hx of the flu and was off her Humira. Developed a flare and called the office. She was given a short course of prednisone and now back on her prednisone 2.5mg Today, Patient is doing well Flare is resolved Taking Humira every 7 days Rheumatologic History: Patient initially diagnosed with seronegative rheumatoid arthritis in 1999 while living in [place] Patient tried methotrexate (oral and subQ), Enbrel, leflunomide, sulfasalazine, Xeljanz without any response Plaquenil: 08/30/2018 -ineffective Methotrexate: failed oral and subcutaneous dates unknown Xeljanz: dates unknown Leflunomide: dates unknown - caused cough Enbrel: dates unknown Humira: April 2019- present Prednisone: 06/08/2018- present Currently on Humira Current Rheumatology Medication(s): Humira 40mg SC every 7-10 days Prednisone 2.5 mg daily [facility] Medical History (Updated 11/24/23 @ 08:42 by Kendy Woodall CNM) Osteopenia of femoral neck Osteopenia Carpal tunnel syndrome Seronegative rheumatoid arthritis History of hypothyroidism Hx of rheumatoid arthritis Surgical History Hx of hernia repair Social History Household Members: Spouse Housing: House Alcohol intake: current Alcohol intake frequency: a few times a week Alcohol type: wine Patient Tobacco Use Status: Never used Tobacco e-Cigarette/Vaping Use: Never Used Sexual orientation: Straight/Heterosexual Gender identity: Female Female Reproductive History Menstrual Age of Menarche: 13 Review of Systems Const Details: Review of Systems Constitutional: Denies fever, chills, weight loss ENT: Denies vision changes, eye pain or eye redness, dental caries, dry mouth GI: Denies nausea, vomiting, diarrhea, abdominal pain, change in BM Pulm: Denies SOB, HICKS, hemoptysis, wheezing Cards: Denies chest pain, palpitations Skin: Denies Raynaud's, rash, nail changes, photosensitivity, HUMAN GEOGRAPHY FACULTY MEMBER: Denies headaches, weakness, paresthesias, recurrent falls MSK: as per HPI All other systems reviewed and are unremarkable except noted above Physical Exam Vital Signs: Last Vital Signs Pulse 76 06/19/24 09:37 BP 120/70 06/19/24 09:37 Pulse Ox 98 06/19/24 09:37 Oxygen Delivery Method Room Air 06/19/24 09:37 BMI result Body Mass Index 28.6 Vital signs reviewed Physical Examination CONSTITUITIONAL Patient alert and cooperative. Well appearing and in no apparent painful distress HEENT Conjunctiva and sclera clear. ?Pupils equal round and reactive to light. ?No lymphadenopathy. ? CHEST/RESPIRATORY SYSTEM Normal respiratory effort and able to speak in complete sentences. ?Clear to auscultation bilaterally. ?No crackles, rales, rhonchi, wheezes heard. CARDIAC SYSTEM Regular rate and rhythm. ?S1 and S2 heard no murmurs. ?Radial pulses intact bilaterally MSK Hands: ?Good social work program coordinator strength bilaterally. No deformities noted. ?No synovitis noted to the MCPs, PIPs or DIPs. ?No tenderness to palpation of these joints. Wrists: ?Full range of motion at the wrists without pain. ?No tenderness to palpation or synovitis noted to the wrists. Elbows: Full range of motion without pain. No tenderness, weakness, swelling, increased warmth or erythema. Shoulders: Full range of motion without pain. No tenderness, weakness, swelling, increased warmth or erythema. Hips: Full range of motion without pain. Hip bursa: No tenderness to palpation Knees: ?Full range of motion. ?No tenderness, swelling, increased warmth or erythema.?Bilateral crepitations felt Ankles: Full range of motion. ?MIld swelling to the lateral malleoli. But no synovitis? Feet: ?Negative squeeze test. ?No tenderness to palpation or swelling of the MTPs. Tender points:?No tenderness to palpation of the bilateral trapezius, supraspinatus, greater trochanters, anterior costochondral junctions, bilateral gluteal areas, bilateral suboccipital muscle insertions SKIN Skin intact without rashes. Results Reviewed Results Reviewed: Laboratory Tests 03/02/24 11:26 WBC 5.9 RBC 4.23 Hgb 13.0 Hct 38.2 Plt Count 177 ESR 4 Sodium 139 Potassium 3.9 Chloride 108 Carbon Dioxide 26 BUN 30 H Creatinine 0.78 AST 33 H ALT 34 H Alkaline Phosphatase 51 C-Reactive Protein 0.11 Total Protein 7.7 Immunology labs 06/08/18 13:16 Rheumatoid Factor < 15.0 Cycl Citrul Peptide IgG <16 THI Screen Positive H THI Titer 1:80 H THI Pattern Speckled Assessment & Plan Assessment & Plan (1) Seronegative rheumatoid arthritis: Comment: Diagnosed in 1999. Plaquenil: 08/30/2018 -ineffective Methotrexate: failed oral and subcutaneous dates unknown Xeljanz: dates unknown Leflunomide: dates unknown - caused cough Enbrel: dates unknown Humira: April 2019- present Prednisone: 06/08/2018- present Code(s): M06.00 - Rheumatoid arthritis without rheumatoid factor, unspecified site Category: Medical Plan: #Seronegative RA Patient is a 53-year-old female with seronegative rheumatoid arthritis here today for follow up. Patient is currently in remission. Plan - Humira 40mg SC every week - Prednisone 2mg daily - Labs today: CBC, CMP, ESR, CRP, hepatitis panel, T spot - RTC 4 months - Labs before visit: CBC, CMP, ESR, CRP (2) salvage determiner (current) use of immunosuppressive biologic: Code(s): Z79.620 - salvage determiner (current) use of immunosuppressive biologic Category: Medical Plan: #Long-term Use of TNF Inhibitors: Humira Discussed with the patient the benefits and risks of TNF inhibitors for the management of the rheumatic condition Benefits include reduce pain, maintenance of remission and reduction of flares as well as ?progression of the disease Risks include injection sites/infusion reactions, serious infections (such as bacterial infections, opportunistic infections), malignancy, delaminating syndromes, autoimmune phenomena, CHF exacerbations, palmar plantar psoriasis and cytopenias Recommended rotating injection sites, and holding medication during and for up to 1 week after resolution of a febrile illness or open skin wound (3) salvage determiner systemic steroid user: Code(s): Z79.52 - salvage determiner (current) use of systemic steroids Category: Medical Plan: #Long-term Use of Steroids Discussed with patient the risks and benefits of steroid for managing the rheumatic condition Benefits include: - Reduced pain, improved mobility, increased participation in activities, and decreased progression of disease Risks include: - GI upset, potential ultrasound worsening or formation (especially in patients > 65 years old), elevated blood pressure/worsening hypertension, elevated blood sugar/worsening diabetes control, worsening of bone density, elevated lipids/worsening triglycerides, cataract formation, weight gain Recommended using proton pump inhibitors (PPIs) for the duration of steroid use to reduce the risk of gastric ulcers and vitamin-D daily to reduce the risk of osteoporosis Labs checked: ?A1c, T spot, hepatitis-B and C serologies Pneumocystis jiroveci prophylaxis: ?Patient with risk factors including steroids greater than 50 mg for more than 30 days, age greater than 60 years, and lung involvement from underlying rheumatic disease requires prophylaxis and will be given so Plan I spent 33 minutes reviewing the record and labs, taking a history, examining the patient, discussing the treatment plan, ordering diagnostic work up and documenting in the medical record Orders: Orders Comprehensive Met. Panel Today M06.00 - Rheumatoid arthritis without rheumatoid factor, unspecified site Hepatitis A,B,C Profile Today M06.00 - Rheumatoid arthritis without rheumatoid factor, unspecified site Complete Blood Count Auto Diff 4 Months M06.00 - Rheumatoid arthritis without rheumatoid factor, unspecified site Erythrocyte Sedimentation Rate 4 Months M06.00 - Rheumatoid arthritis without rheumatoid factor, unspecified site Complete Blood Count Auto Diff Today M06.00 - Rheumatoid arthritis without rheumatoid factor, unspecified site C Reactive Protein Today M06.00 - Rheumatoid arthritis without rheumatoid factor, unspecified site Erythrocyte Sedimentation Rate Today M06.00 - Rheumatoid arthritis without rheumatoid factor, unspecified site T Spot TB Today M06.00 - Rheumatoid arthritis without rheumatoid factor, unspecified site Comprehensive Met. Panel 4 Months M06.00 - Rheumatoid arthritis without rheumatoid factor, unspecified site C Reactive Protein 4 Months M06.00 - Rheumatoid arthritis without rheumatoid factor, unspecified site Medications: Changed From prednisone 2 mg PO DAILY M06.00 - Rheumatoid arthritis without rheumatoid factor, unspecified site To prednisone 2 mg (2 x 1 mg) PO DAILY 90 days 180 tabs 1RF M06.00 - Rheumatoid arthritis without rheumatoid factor, unspecified site Refilled adalimumab (Humira(CF) Pen) 40 mg (0.4 mL) subcut QWEEK 4 ea 5RF M06.00 - Rheu matoid arthritis without rheumatoid factor, unspecified site Coding Level of Care Code Est Pt Level 4 (55562) Complex EM visit Add On G2211 Diagnoses Seronegative rheumatoid arthritis M06.00 detention (current) use of immunosuppressive biologic Z79.620 salvage determiner systemic steroid user Z79.52
[2024-06-19 09:37] VITALS: BP 120/70; PULSE 76; O2SAT 98; BMI 28.6
--- OUTSIDE RECORDS SUMMARY | 2024-06-19 10:20 | XMS_ITS | Patient Health Record ---
Author Organization [facility] Address [address] [place] [address] Care Team Providers Care Spectrographer Name Role Phone Deyvi Carlin MD Primary Care Provider Dell Zamorano Unavailable [phone] Allergies Allergen (clinical drug ingredient) Drug/Non Drug [...] W/U Status Risk Notes Problem Tinea unguium (777349258) Tinea unguium (B35.1) Active confirmed Plan Of Treatment Pending Test Test Name Order Date *Liver Function Test (LFT) 01/13/2022 *Liver Function Test (LFT) 04/07/2022 Insurance Providers Payer Name Payer Address Payer Phone Subscriber Number Group Number Insured Name Patient Relationship to Insured Coverage Start Date Coverage End Date [facility] [address] [place] [address] [id number] Karey Andrea Self - patient is the insured Medical (General) History Medical History History ICD Code Hypothyroidism Rheumatoid arthritis Headaches/Migraines Chicken pox Surgical History Surgery Date(Month/Year) carpal tunnel surgery Hernia Repair 2011
== END 2024-06-19 09:58 | disposition home or self-care (01) ==
LOC: HO.RHE 09:17
PROVIDERS: PCP Family Medicine; Visit Provider Student in an Organized Health Care Education/Training Program
DX: M06.00 Rheumatoid arthritis without rheumatoid factor, unspecified site (principal); Z79.620 Long term (current) use of immunosuppressive biologic; Z79.52 Long term (current) use of systemic steroids
CPT/HCPCS: 99214

== ENCOUNTER 2024-10-18 09:17 | Outpatient (REF) | payer BC, SELFPAY ==
--- OUTSIDE RECORDS SUMMARY | 2024-10-18 09:36 | XMS_ITS | Clinical Summary ---
Author Organization [facility] Address [address] [address] Phone Care Team Providers Care Dry Kiln Burner Name Role Phone Trell Crzu MD Unavailable [email or web address] Deyvi Carlin MD Unavailable [phone] Deyvi Carlin MD Primary Care Provider [phone] Jl Dale MD Unavailable [phone] Allergies Active Allergy Reactions Criticality Noted Date Comments Erythromycin Hives 10/04/2017 Methotrexate Angioedema High 11/21/2018 Allergic reaction to injection Local reaction Shellfish Containing Products Unknown 02/09/2024 Medications levonorgestrel (MIRENA) 20 mcg/24 hr (5 years) intrauterine device Intrauterine 6 Active ibuprofen (ADVIL,MOTRIN) 800 MG tabletIndication s:Rheumatoid arthritis involving both hands with negative rheumatoid factor Take 1 tablet (800 mg total) by mouth every 8 (eight) hours as needed for pain (specific location in comments) (as needed for arthritis pain, Take with food). 60 tablet 9 Active HUMIRA,CF, PEN 40 mg/0.4 mL pen kit Injection once every 2 weeks 2 Active rizatriptan (MAXALT) 5 MG tabletIndication s:Migraine without aura and responsive to treatment Take 1 tablet (5 mg total) by mouth as needed for migraine. May repeat in 2 hours if needed 9 tablet 2 4 Active predniSONE (DELTASONE) 1 MG tablet Take 2.5 tablets (2.5 mg total) by mouth daily. As needed 4 Active levothyroxine (SYNTHROID, LEVOTHROID) 88 MCG tablet TAKE 1 TABLET(88 MCG) BY MOUTH EVERY MORNING 90 tablet 3 5 Active estradioL (VIVELLE-DOT) 0.025 mg/24 hrIndications:Me nopausal symptom APPLY 1 PATCH TOPICALLY TO THE SKIN 2 TIMES A WEEK 24 patch 1 5 Active Active Problems Problem Noted Date Diagnosed Date IUD (intrauterine device) in place 04/28/2024 Overview (04/28/2024): Mirena 02/2021 Acquired hypothyroidism 10/04/2017 Migraine without aura and responsive to treatmen t 10/04/2017 Rheumatoid arthritis involvi ng both hands with negative rheumatoid factor 10/04/2017 Assessment & Plan (05/05/2023 2:30 PM EST): Followed by [facility] rheumatology. Last note 02/2023 reviewed. Resolved Problems Problem Noted Date Diagnosed Date Resolved Date Chronic fatigue 10/04/2017 02/09/2024 Immunizations Immunization Administration Dates Next Due COVID-19 (Pre-01/04) Pfizer Vaccine, mRNA, PF 02/19/2021,06/07/2020 COVID-19 Pfizer Comirnaty Vaccine 12+ 11/25/2023 Influenza Quadrivalent MDCK Preservative Free IM 04/10/2023,02/24/2022 Influenza Quadrivalent Preservative Free IM 10/2020,12/21/2019,05/11/2019 Influenza Recombinant Lawrence valent Preservative Free IM 02/11/2018 Influenza Trivalent MDCK Pre servative Free IM 11/25/2023 Pneumococcal conjugate PCV13 05/11/2019 Tdap 08/18/2011 Family History Medical History Relation Comments Migraines Mother Relation Status Comments Father Alive Mother Alive Social History Tobacco Use Types Packs/Day Years Used Date Smoking Tobacco: Never Smokeless Tobacco: Never Tobacco Cessation:Counseling Given: Not Answered Alcohol Use Standard Drinks/Week Comments Yes 4 (1 standard drink = 0.6 oz pur e alcohol) Child or Family Care Answer Date Record ed Do you have problems with on e of the following making it difficult for you to work, study, or receive health care? No 02/09/2024 Education Answer Date Recorded Are you interested in help w ith more adult education (for example, completing high school, GED, job training, learning the Guamanian language, technical skills, or developing parenting skills)? No 02/09/2024 Are you concerned about learning? Not on file 02/09/2024 No 02/09/2024 Yes 02/09/2024 Food Answer Date Recorded Within the past 6 months we worried whether our food would run out before we got money to buy more. Never True 02/09/2024 Within the past 6 months the food we bought just didn't last and we didn't have enough money to get more. Never True Residential Stability Answer Date Recor ded What is your housing situation today? I have payal pino 02/09/2024 How many times have you move d in the past 12 months? Zero (I did not move) 02/09/2024 Paying for Meds Answer Date Recorded Do you have trouble paying for medicines? No 02/09/2024 Paying Utility Bills Answer Date Record ed Do you have trouble paying your heating or elect ricity bill? No 02/09/2024 Transportation Answer Date Recorded Has the lack of transportati on kept you from medical appointments or from getting medications? No 02/09/2024 Digital Access Answer Date Recorded No 02/09/2024 Yes 02/09/2024 Do you have reliable internet access at home? Ye s 02/09/2024 Do you have a device (e.g., phone, tablet, computer) with a working camera? Yes 02/09/2024 Intimate Partner Violence Answer Date R ecorded Denied Basic Needs Not on file 02/09/2024 In the past 12 months have y ou been in a relationship with a person who hurts, threatens, or tries to control you? No 02/09/2024 Worried food would run out Not on file 02/08 In the past 12 months have y ou been in a relationship with a person who hurts, threatens, or tries to control you? No 02/09/2024 Comments No Sex and Gender Information Value Date Recorded Sex Assigned at Not on file Legal Sex Female 9:32 PM EDT Gender Identity Not on file Sexual Orientation Not on file Last Filed Vital Signs Vital Sign Reading Time Taken Comments Blood Pressure 120/78 03/27/2024 2:16 PM EST Pulse 80 02/09/2024 7:57 AM EST Temperature 36.3 C (97.3 F) 02/09/2024 7:57 AM EST Respiratory Rate - - Oxygen Saturation 96% 02/09/2024 7:57 AM EST Inhaled Oxygen Concentration - - Weight 68.5 kg (151 lb) 03/27/2024 2:16 PM EST Height 160 cm (5' 3 ) 03/27/2024 2:16 PM EST Body Mass Index 26.75 03/27/2024 2:16 PM EST Plan of Treatment Upcoming Encounters Date Type Department Care Team (Late st Contact Info) Description 02/13/2025 8:00 AM EST Office Visit [facility] Medicine [address] [place] [address] [place] [address] Deyvi Carlin MD [address] [place] [address] [email or web address] Health Maintenance Due Date Last Done Comments HEPATITIS C SCREENING 10/06/1989 HIV ONE-TIME SCREENING (18-65 YEARS) 10/06/1989 COLONOSCOPY 10/06/2016 FIT TEST 10/06/2016 FOBT 10/06/2016 SIGMOIDOSCOPY 10/06/2016 VIRTUAL COLONOSCOPY 10/06/2016 PNEUMOCOCCAL VACCINES (50+ years) (2 of 2 - PPSV23) 07/06/2019 05/11/2019 Adult Td,Tdap Booster 08/17/2021 08/18/2011 COVID-19 VACCINE (5 - Mixed Product risk season) 2024 11/25/2023, 02/24/2022, 02/19/2021, Additional history exists MAMMOGRAM 05/27/2024 05/27/2022, 12/26/2015 DEPRESSION SCREENING 02/08/2025 02/09/2024 ZOSTER VACCINES (1 of 2) 02/16/2025 Pos tponed from 10/06/1990 (Not Clinically Appropriate) TSH LEVEL 03/03/2025 03/03/2024, 01/15, 10/13/2022, Additional history exists SCREENING FOR DIABETES 03/03/2027 03/03/2024 COLOGUARD 03/25/2027 03/25/2024 COLORECTAL CANCER SCREENING 03/25/2027 PAP SMEAR 11/06/2027 11/05/2022, 12/26/2015 LIPID PANEL 03/03/2029 03/03/2024, 09/12, 07/05/2010 SMOKING STATUS SCREENING (Once After 26 Yrs) Completed 04/28/2024 HEPATITIS A VACCINES Aged Out No long er eligible based on patient's age to complete this topic HIB VACCINES Aged Out No longer eligi ble based on patient's age to complete this topic MENINGOCOCCAL VACCINES (ACWY) Aged Out No longer eligible based on patient's age to complete this topic MENINGOCOCCAL VACCINES (B) Aged Out N o longer eligible based on patient's age to complete this topic Medical Devices Not on file Procedures Procedure Name Priority Date/Time Associated Diagnosis Comments LIPID PANEL Routine 03/03/2024 8:03 AM EST Annual physical exam TSH WITH REFLEX Routine 03/03/2024 8:03 AM EST Acquired hypothyroidism PAP TEST Routine 11/05/2022 HM MAMMOGRAPHY Routine 05/27/2022 from Last 3 Months or Most Recently Relevant to Health Maintenance Results * TSH with reflex (03/03/2024 8:03 AM EST) TSH 2.54 0.27 - 4.20 uIU/mL [facility] Blood 03/03/2024 8:03 AM EST 03/03/2024 8:09 AM EST us Deyvi Carlin MD LAB BLOOD ORDERABLES Final Result [facility] [address] [place] [address] * Lipid panel (03/03/2024 8:03 AM EST) HDL 44 mg/dL [facility] Comment: Interpretation <40 mg/dL: Low HDL cholesterol (major risk factor for CHD) Greater than or equal to 60 mg/dL: High HDL cholesterol ( negative risk factor for CHD) HDL - cholesterol is affected by a number of factors, e.g. smoking, excerise, hormones, sex and age. CHOLESTEROL 171 0 - 240 mg/dL [facility] TRIGLYCERIDES 79 30 - 160 mg/dL [facility] LDL 111 50 - 129 mg/dL [facility] Comment: LDL levels in terms of risk for coronary heart disease: <100 mg/dL: Optimal 100-129 mg/dL: Near or above optimal 130-159 mg/dL: Borderline high 160-189 mg/dL: High >190 mg/dL: Very High CARDIAC RISK RATIO 3.9 3.3 - 4.4 [facility] Blood 03/03/2024 8:03 AM EST 03/03/2024 8:09 AM EST us Deyvi Carlin MD LAB BLOOD ORDERABLES Final Result Performing Organization Address City/State/[facility] Co de Phone Number [facility] [address] [place] [address] * Pap Test (11/05/2022) us Deyvi Carlin MD CYTOLOGY ORDERABLES Edited Result - Final * MAMMOGRAPHY FOR RESULT ENTRY ONLY (05/27/2022) us Deyvi Carlin MD HEALTH MAINTENANCE Edited Result - Final from Last 3 Months or Most Recently Relevant to Health Maintenance [place] [address] [place] [address] [facility] [place] [place] [address] [facility] Care Teams Dry Kiln Burner Relationship Specialty Start Date End Date Deyvi Carlin MD [address] [place] [address], [address] [place] [address] [email or web address] [email or web address] - General Family Medicine 02/22/17 Trell Cruz MD [email or web address] Historical LMR Provider 12/28/16 Deyvi Carlin MD [address] [place] [address], [address] [place] [address] [email or web address] Historical LMR Provider 12/28/16 Jl Dale MD [address] [place] [address], [address] [place] [address] [email or web address] Insurance Assigned Provider 06/19/23 Additional Source Comments The information contained in this document represents components of the legal health record. It is not the complete legal health record.[facility]
--- OUTSIDE RECORDS SUMMARY | 2024-10-18 09:36 | XMS_ITS | Patient Health Record ---
Author Organization [facility] Address [address] [place] [address] Care Team Providers Care Yacht Master Name Role Phone Deyvi Carlin MD Primary Care Provider Dell Zamorano Unavailable [phone] Allergies Allergen (clinical drug ingredient) Drug/Non Drug Allergy documented on EMR Reaction Allergy Type Onset Date Status erythromycin Erythromycin hives Drug Allergy A ctive Shellfish (FN) Shellfish-derived Products Unknown Drug Allergy Active Reason For Referral No Information Medications Medication SIG (Take, Route, Frequency, Duration) Notes Start Date End Date Status Rizatriptan Benzoate Active Vitamin D3 50 MCG (1999) 1 capsule Orally Once a day; Duration: 30 day(s) Active Levothyroxine Sodium 88 MCG 1 tablet in the morning on an empty stomach Orally Once a day; Duration: 30 day(s) Active predniSONE 2 MG 1 tablet Orally Once a day Active Ciclopirox 0.77 % 1 application to affected area Externally Twice a day; Duration: 365 days Active LamISIL 250 MG 1 tablet Orally Once a day; Duration: 30 days Active Meloxicam 15 MG 1 tablet Orally Once a day; Duration: 30 day(s) Not-Taking Humira Pen 40 MG/0.8ML [...] W/U Status Risk Notes Problem Tinea unguium (297384694) Tinea unguium (B35.1) Active confirmed Plan Of Treatment Pending Test Test Name Order Date *Liver Function Test (LFT) 01/13/2022 *Liver Function Test (LFT) 04/07/2022 Insurance Providers Payer Name Payer Address Payer Phone Subscriber Number Group Number Insured Name Patient Relationship to Insured Coverage Start Date Coverage End Date [facility] [address] [place] [address] [id number] [place], Karey Self - patient is the insured Medical (General) History Medical History History ICD Code Hypothyroidism Rheumatoid arthritis Headaches/Migraines Chicken pox Surgical History Surgery Date(Month/Year) carpal tunnel surgery Hernia Repair 2011
[2024-10-18 11:15] LABS: MANUAL DIFF FLAG NO
[2024-10-18 11:29] LABS: Hematocrit 39.9 % (37.0-47.0); Hemoglobin 13.3 g/dl (12.0-16.0); Imm Gran Abs Auto 0.03 X10*3/uL (0.00-0.03); Imm Gran Pct Auto 0.4 % (0.0-0.4); Lymphocytes Absolute Auto 3.3 X10*3/uL (1.2-4.9); Mean Corpuscular HGB Conc 33.3 g/dl (31.0-35.0); Mean Corpuscular Hemoglobin 30.8 pg (27.0-33.0); Mean Corpuscular Volume 92.4 fL (80.0-98.0); NRBC Abs Auto 0.000 X10*3/uL (0.0-0.012); NRBC Pct Auto 0.0 /100WBC (0.0-0.2); Platelet Count 202 X10*3/uL (160-400); Red Blood Count 4.32 X10*6/uL (4.20-5.50); White Blood Count 8.1 X10*3/uL (4.8-10.8)
[2024-10-18 11:53] LABS: Alanine Aminotransferase 29 U/L (0-31); Albumin Level 4.6 g/dL (3.5-5.0); Alkaline Phosphatase 54 U/L (39-117); Anion Gap 11 (12-20); Aspartate Amino Transferase 29 U/L (5-31); Blood Urea Nitrogen 22 mg/dL (9-16); Calcium 9.2 mg/dL (8.4-10.2); Carbon Dioxide 27 mmol/L (22-29); Chloride 107 mmol/L (96-108); Estimated Glomerular Filt Rate > 60; Potassium 3.9 mmol/L (3.3-5.1); Sodium 141 mmol/L (135-145); Total Protein 7.8 g/dL (6.5-8.0)
[2024-10-18 12:10] LABS: HBS Num1 0.61 mIU/mL (0-7.99); HBc Num1 0.05 S/CO (0.00-0.79); HBsAGNum1 0.46 S/CO (0.00-0.99); Hepatitis A Antibody IgM 0.35 Index (0-0.79); Hepatitis B Surface Antigen Negative (Negative); ~HepC Num1 0.12 S/CO (0.00-0.79); ~Hepatitis A Antibody IgM Nonreactive (Nonreactive); ~Hepatitis B Surface Antibody NONREACTIVE (Nonreactive); ~Hepatitis C Antibody Nonreactive (Nonreactive)
[2024-10-21 08:14] LABS: TS Negative Control Passed; TS Panel A 0; TS Panel B 0; TS Positive Control Passed; TSpotTB Negative (Negative)
== END 2024-10-18 09:18 | disposition home or self-care (01) ==
LOC: HO.10HDL 09:17
PROVIDERS: Visit Provider Student in an Organized Health Care Education/Training Program
DX: M06.00 Rheumatoid arthritis without rheumatoid factor, unspecified site (principal)
CPT/HCPCS: 36415; 80053; 85025; 85652; 86140; 86481; 86704; 86706; 86709; 86803; 87340

== ENCOUNTER 2024-10-20 07:39 | Outpatient (AMB) | payer BC, SELFPAY ==
--- OUTSIDE RECORDS SUMMARY | 2024-10-20 07:42 | XMS_ITS | Patient Health Record ---
[facility] Address [address] [place] [address] Care Team Providers Care Asphalt Engineer Name Role Phone Deyvi Carlin MD Primary Care Provider Dell Zamorano Unavailable [phone] Allergies Allergen (clinical drug ingredient) Drug/Non Drug [...] W/U Status Risk Notes Problem Tinea unguium (954898061) Tinea unguium (B35.1) Active confirmed Plan Of Treatment Pending Test Test Name Order Date *Liver Function Test (LFT) 01/13/2022 *Liver Function Test (LFT) 04/07/2022 Insurance Providers Payer Name Payer Address Payer Phone Subscriber Number Group Number Insured Name Patient Relationship to Insured Coverage Start Date Coverage End Date [facility] [address] [place] [address] [id number] Sami, Karey Self - patient is the insured Medical (General) History Medical History History ICD Code Hypothyroidism Rheumatoid arthritis Headaches/Migraines Chicken pox Surgical History Surgery Date(Month/Year) carpal tunnel surgery Hernia Repair 2011
--- NOTE | 2024-10-20 07:48 | A.OFFVIS_ITS ---
Vital Signs 10/20/24 07:55 Height 5 ft 2 in Weight 153 lb 0.013 oz BMI 28.0 BP 115/70 Blood Pressure Location Lt brachial Position Sitting Pulse 67 Pulse Source Pulse Oximeter Pulse Oximetry (%) 97 Oxygen Delivery Method Room Air Intake Visit Reasons: Follow up Intake Note: Patient presents for RA follow up. Allergies shellfish derived Allergy (Unknown, Verified 10/20/24 07:54) Unknown Erythromycin Allergy (Intermediate, Uncoded 02/21/24 08:19) hives Medication List - Last Reconciled 10/20/24 by Yaz Nieves MD adalimumab (Humira(CF) Pen) 40 mg (0.4 mL) subcut QWEEK cholecalciferol (vitamin D3) 50 mcg PO DAILY estradiol transdermal levonorgestrel (Mirena) intrauterine levothyroxine 88 mcg PO DAILY prednisone 2 mg (2 x 1 mg) PO DAILY 90 days rizatriptan take 1 tablet at onset of headache; if no relief, may repeat 1 tablet after at least 2 hrs PO HPI Comments Details: Patient is a 54-year-old female with hypothyroidism, seronegative rheumatoid arthritis, osteopenia of left femoral neck here today for follow up Interval History: Last seen 06/19/24 - On Humira 40mg SC every 7 days and prednisone 2.5mg daily - Doing well after flare 2/2 to holding medication in the setting of a cold Since then, - Went on a trip to [place] and missed a Humira dose - Increased her prednisone dose to 4 mg a day - Since she has been home and restarted her Humira, able to taper and currently on 3mg with plans to go back down to 2mg Today, - On Humira every 7 days and prednisone 3mg daily - Doing well: improved since restarting the Humira - Does report some bilateral foot stiffness and pain especially in the balls of her feet in the AM that improves throughout the day Rheumatologic History: Patient initially diagnosed with seronegative rheumatoid arthritis in 1999 while living in [place] Patient tried methotrexate (oral and subQ), Enbrel, leflunomide, sulfasalazine, Xeljanz without any response Plaquenil: 08/30/2018 -ineffective Methotrexate: failed oral and subcutaneous dates unknown Xeljanz: dates unknown Leflunomide: dates unknown - caused cough Enbrel: dates unknown Humira: April 2019- present Prednisone: 06/08/2018- present Currently on Humira Current Rheumatology Medication(s): Humira 40mg SC every 7-10 days Prednisone 3mg daily PFS Medical History (Updated 10/20/24 @ 08:30 by Yaz Nieves MD) Osteopenia of femoral neck Osteopenia Carpal tunnel syndrome Seronegative rheumatoid arthritis History of hypothyroidism Hx of rheumatoid arthritis Surgical History Hx of hernia repair Social History Household Members: Spouse Housing: House Alcohol intake: current Alcohol intake frequency: a few times a week Alcohol type: wine Patient Tobacco Use Status: Never used Tobacco e-Cigarette/Vaping Use: Never Used Sexual orientation: Straight/Heterosexual Gender identity: Female Female Reproductive History Menstrual Age of Menarche: 13 Review of Systems Const Details: Review of Systems Constitutional: Denies fever, chills, weight loss ENT: Denies vision changes, eye pain or eye redness, dental caries, dry mouth GI: Denies nausea, vomiting, diarrhea, abdominal pain, change in BM Pulm: Denies SOB, HICKS, hemoptysis, wheezing Cards: Denies chest pain, palpitations Skin: Denies Raynaud's, rash, nail changes, photosensitivity, ORDER RUNNER: Denies headaches, weakness, paresthesias, recurrent falls MSK: as per HPI All other systems reviewed and are unremarkable except noted above Physical Exam Exam Exam: Vital signs reviewed Physical Examination CONSTITUITIONAL Patient alert and cooperative. Well appearing and in no apparent painful distress HEENT Conjunctiva and sclera clear. No lymphadenopathy. MSK Hands * Right Hand: Able to make a fist. No swelling or tenderness to palpation of these joints. No deformities noted. * Left Hand: Able to make a fist. No swelling or tenderness to palpation of these joints. No deformities noted. Wrists * Right Wrist: Full ROM. 70 degrees of wrist flexion, 80 degrees of wrist extension. No swelling or TTP * Left Wrist: Full ROM. 70 degrees of wrist flexion, 80 degrees of wrist extension. No swelling or TTP Elbows * Right Elbow: Full ROM. No swelling or TTP. No TTP of the medial and lateral epicondyles * Left Elbow: Full ROM. No swelling or TTP. No TTP of the medial and lateral epicondyles Shoulders * Right shoulder: Full ROM. No swelling noted. No TTP of the AC joint, subacromial bursa or posterior shoulder * Left shoulder: Full ROM. No swelling noted. No TTP of the AC joint, subacromial bursa or posterior shoulder Knees * Right knee: Full ROM. No swelling noted. No TTP of the knee joint lie or pes anserine bursa * Left knee: Full ROM. No swelling noted. No TTP of the knee joint lie or pes anserine bursa. * Crepitations felt bilaterally Ankles * Right ankle: Good ankle dorsiflexion and plantar flexion. No swelling. No TTP of the ankle joint * Left ankle: Good ankle dorsiflexion and plantar flexion. No swelling. No TTP of the ankle joint Feet * Right foot: Negative squeeze test. No TTP of the MTPs. Bunion noted * Left foot: Negative squeeze test. No TTP of the MTPs. Bunion noted Tender points? * No tenderness to palpation of the bilateral trapezius, supraspinatus, anterior costochondral junctions, bilateral suboccipital muscle insertions SKIN No rashes Vital Signs: Last Vital Signs Pulse 67 10/20/24 07:55 BP 115/70 10/20/24 07:55 Pulse Ox 97 10/20/24 07:55 Oxygen Delivery Method Room Air 10/20/24 07:55 BMI result Body Mass Index 28.0 Results Reviewed Results Reviewed: Laboratory Tests 10/18/24 09:20 WBC 8.1 RBC 4.32 Hgb 13.3 Hct 39.9 Plt Count 202 ESR 5 Sodium 141 Potassium 3.9 Chloride 107 Carbon Dioxide 27 BUN 22 H Creatinine 0.68 AST 29 ALT 29 C-Reactive Protein 0.11 Infectious labs 10/18/24 09:20 Hepatitis A IgM Ab Nonreactive Hep Bs Antigen Negative Hep Bs Antibody NONREACTIVE Hep B Core Total Ab Nonreactive Hepatitis C Ab (EIA) Nonreactive TB Test (T-Spot) Com Pending DEXA 05/2022 FINDINGS: AP SPINE L1-L4: Current: BMD 1.169 g/cm2, Z-score 0.3, T-score -0.1, normal, 1.6% decrease from baseline (<5% change is not significant). Baseline: BMD 1.188 g/cm2. LEFT FEMUR, NECK: Current: BMD 0.871 g/cm2, Z-score -0.5, T-score -1.2, osteopenia. Baseline: BMD 0.824 g/cm2. LEFT FEMUR, TOTAL: Current: BMD 0.958 g/cm2, Z-score 0.0, T-score -0.4, normal, 9.5% increase from baseline (<5% change is not significant). Baseline: BMD 0.875 g/cm2. FRAX: Major osteoporotic fracture (clinical spine, forearm, hip or shoulder) 9.2%. Hip fracture 0.7% Assessment & Plan Assessment & Plan (1) Seronegative rheumatoid arthritis: Comment: Diagnosed in 1999. Plaquenil: 08/30/2018 -ineffective Methotrexate: failed oral and subcutaneous dates unknown Xeljanz: dates unknown Leflunomide: dates unknown - caused cough Enbrel: dates unknown Humira: April 2019- present Prednisone: 06/08/2018- present Code(s): M06.00 - Rheumatoid arthritis without rheumatoid factor, unspecified site Category: Medical Plan: #Seronegative RA Patient is a 54-year-old female with seronegative rheumatoid arthritis here today for follow up. Patient is currently in remission. Complaining of bilateral foot pain. The history sounds like a grady's neuroma but we will check XRs. If okay will send to PT vs podiatry Plan - Humira 40mg SC every week - Prednisone 2mg daily - RTC 6 months - Labs before visit: CBC, CMP, ESR, CRP (2) Osteopenia: Comment: DEXA 05/2022: AP Spine -0.1, Left femur neck -1.2, Left femur total -0.4 Code(s): M85.80 - Other specified disorders of bone density and structure, unspecified site Category: Medical Qualifiers: Osteopenia location: multiple sites Qualified Code(s): M85.89 - Other specified disorders of bone density and structure, multiple sites Plan: #Osteopenia Risk factors for osteoporosis: steroid use and RA Osteopenia of the left femoral neck with low FRAX Will repeat DEXA 05/2025 (3) long-term (current) use of immunosuppressive biologic: Code(s): Z79.620 - regional sales 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 (current) use of immunosuppressive biologic Category: Medical Plan: #Long-term Use of TNF Inhibitors: Humira Discussed with the patient the benefits and risks of TNF inhibitors for the management of the rheumatic condition Benefits include reduce pain, maintenance of remission and reduction of flares as well as ?progression of the disease Risks include injection sites/infusion reactions, serious infections (such as bacterial infections, opportunistic infections), malignancy, delaminating syndromes, autoimmune phenomena, CHF exacerbations, palmar plantar psoriasis and cytopenias Recommended rotating injection sites, and holding medication during and for up to 1 week after resolution of a febrile illness or open skin wound (4) long-term systemic steroid user: Code(s): Z79.52 - long-term (current) use of systemic steroids Category: Medical Plan: #Long-term Use of Steroids Discussed with patient the risks and benefits of steroid for managing the rheumatic condition Benefits include: - Reduced pain, improved mobility, increased participation in activities, and decreased progression of disease Risks include: - GI upset, potential ultrasound worsening or formation (especially in patients > 65 years old), elevated blood pressure/worsening hypertension, elevated blood sugar/worsening diabetes control, worsening of bone density, elevated lipids/worsening triglycerides, cataract formation, weight gain Recommended using proton pump inhibitors (PPIs) for the duration of steroid use to reduce the risk of gastric ulcers and vitamin-D daily to reduce the risk of osteoporosis Labs checked: ?A1c, T spot, hepatitis-B and C serologies Pneumocystis jiroveci prophylaxis: ?Patient with risk factors including steroids greater than 50 mg for more than 30 days, age greater than 60 years, and lung involvement from underlying rheumatic disease requires prophylaxis and will be given so Plan I spent 30 minutes reviewing the record and labs, taking a history, examining the patient, discussing the treatment plan, ordering diagnostic work up and documenting in the medical record Orders: Orders XR foot RT 2V Today M06.00 - Rheumatoid arthritis without rheumatoid factor, unspecified site XR foot LT 2V Today M06.00 - Rheumatoid arthritis without rheumatoid factor, unspecified site Medications: Refilled prednisone 2 mg (2 x 1 mg) PO DAILY 180 tabs 1RF 90 days M06.00 - Rheumatoid arthritis without rheumatoid factor, unspecified site adalimumab (Humira(CF) Pen) 40 mg (0.4 mL) subcut QWEEK 4 ea 5RF M06.00 - Rheumatoid arthritis without rheumatoid factor, unspecified site Coding Level of Care Code Est Pt Level 4 (37491) Complex EM visit Add On G2211 Diagnoses Seronegative rheumatoid arthritis M06.00 Osteopenia of multiple sites M85.89 Osteopenia location: multiple sites long-term (current) use of immunosuppressive biologic Z79.620 long-term systemic steroid user Z79.52
[2024-10-20 07:55] VITALS: BP 115/70; PULSE 67; O2SAT 97; BMI 28.0
== END 2024-10-20 08:20 | disposition home or self-care (01) ==
LOC: HO.RHES 07:40
PROVIDERS: PCP Family Medicine; Visit Provider Student in an Organized Health Care Education/Training Program
DX: M06.00 Rheumatoid arthritis without rheumatoid factor, unspecified site (principal); M85.89 Other specified disorders of bone density and structure, multiple sites; Z79.620 Long term (current) use of immunosuppressive biologic; Z79.52 Long term (current) use of systemic steroids
CPT/HCPCS: 99214

== ENCOUNTER 2024-11-17 08:39 | Outpatient (REF) | payer BC, SELFPAY ==
--- NOTE | ~2024-11-17 | XR_ITS ---
EXAMINATION: XR FOOT, RIGHT CLINICAL INFORMATION: M06.00 - Rheumatoid arthritis without rheumatoid factor, unspecified site COMPARISON: June 09, 2018. TECHNIQUE: AP, lateral, and oblique views of the right foot. FINDINGS: Sclerotic margins along the articular surface of the first metatarsophalangeal joint with asymmetric joint space narrowing. No acute cortical disruption or malalignment. No gross bony erosion. No lytic or blastic lesions. No subcutaneous emphysema. No metallic or radiopaque foreign body. XR/XR foot RT min 3V IMPRESSION: Osteoarthritis/osteoarthrosis, first metatarsophalangeal joint. Worsened since prior exam. Electronically signed by: Shade Marti MD 11/17/2024 09:19 AM EDT
--- NOTE | ~2024-11-17 | XR_ITS ---
EXAMINATION: XR FOOT, LEFT CLINICAL INFORMATION: M06.00 - Rheumatoid arthritis without rheumatoid factor, unspecified site COMPARISON: 06/09/2018. TECHNIQUE: AP, lateral, and oblique views of the left foot. FINDINGS: No fracture, dislocation, or suspicious bone lesion. There is moderate bunion formation involving the medial eminence of the first metatarsal head, with minimal hallux valgus. Mild overlying soft tissue prominence. There is mild osteoarthrosis in the first MTP joint. Joint spaces otherwise appear preserved. There is a stable subchondral cystic focus in the second metatarsal head, unchanged. No definite periarticular erosions evident. Normal plantar arch. The midfoot and hindfoot appear normal. No additional soft tissue abnormalities XR/XR foot LT min 3V IMPRESSION: 1. No definite erosive arthropathy identified. 2. Bunion formation involving the first metatarsal head. Mild overlying soft tissue prominence. 3. Mild degenerative arthritis in the first MTP joint. Minimal hallux valgus. Electronically signed by: Vahid Galvan MD 11/17/2024 09:17 AM EDT
--- OUTSIDE RECORDS SUMMARY | 2024-11-17 09:10 | XMS_ITS | Patient Health Record ---
Author Organization [facility] Address [address] [place] [address] Care Team Providers Care Steam And Power Superintendent Name Role Phone Deyvi Carlin MD Primary Care Provider Dell Zamorano Unavailable [phone] Allergies Allergen (clinical drug ingredient) Drug/Non Drug [...] W/U Status Risk Notes Problem Tinea unguium (259053402) Tinea unguium (B35.1) Active confirmed Plan Of Treatment Pending Test Test Name Order Date *Liver Function Test (LFT) 01/13/2022 *Liver Function Test (LFT) 04/07/2022 Insurance Providers Payer Name Payer Address Payer Phone Subscriber Number Group Number Insured Name Patient Relationship to Insured Coverage Start Date Coverage End Date [facility] [address] [place] [address] [id number] Luxembourgish, Karey Self - patient is the insured Medical (General) History Medical History History ICD Code Hypothyroidism Rheumatoid arthritis Headaches/Migraines Chicken pox Surgical History Surgery Date(Month/Year) carpal tunnel surgery Hernia Repair 2011
== END 2024-11-17 08:40 | disposition home or self-care (01) ==
LOC: HO.HMGCX 08:39
PROVIDERS: PCP Family Medicine; Visit Provider Student in an Organized Health Care Education/Training Program
DX: M06.00 Rheumatoid arthritis without rheumatoid factor, unspecified site (principal)
CPT/HCPCS: 73630

== ENCOUNTER → 2024-11-17 09:00 | Outpatient (BNV) | payer BC, SELFPAY | PROVIDERS: PCP Family Medicine; Visit Provider Radiology Diagnostic Radiology | DX: M19.072 Primary osteoarthritis, left ankle and foot (principal); M19.271 Secondary osteoarthritis, right ankle and foot | CPT/HCPCS: 73630 ==

== ENCOUNTER 2024-12-07 07:57 | Outpatient (REF) | payer BC, SELFPAY | END 2024-12-07 07:58 | disposition home or self-care (01) | LOC: HO.LAB 07:57 | PROVIDERS: PCP Family Medicine; Visit Provider Student in an Organized Health Care Education/Training Program | DX: M20.21 Hallux rigidus, right foot (principal); M20.22 Hallux rigidus, left foot; M77.41 Metatarsalgia, right foot; M77.42 Metatarsalgia, left foot; M06.00 Rheumatoid arthritis without rheumatoid factor, unspecified site; B35.1 Tinea unguium; L84 Corns and callosities; L85.3 Xerosis cutis; M19.071 Primary osteoarthritis, right ankle and foot | CPT/HCPCS: 11056; 87101; 87220 ==

== ENCOUNTER 2024-12-07 07:57 | Outpatient (AMB) | payer BC, SELFPAY ==
--- OUTSIDE RECORDS SUMMARY | 2024-12-07 08:00 | XMS_ITS | Patient Health Record ---
Author Organization [facility] Address [address] [place] [address] Care Team Providers Care Import Dispatcher Name Role Phone Deyvi Carlin MD Primary Care Provider Dell Zamorano Unavailable [phone] Allergies Allergen (clinical drug ingredient) Drug/Non Drug [...] W/U Status Risk Notes Problem Tinea unguium ([id number]) Tinea unguium (B35.1) Active confirmed Plan Of Treatment Pending Test Test Name Order Date *Liver Function Test (LFT) 01/13/2022 *Liver Function Test (LFT) 04/07/2022 Insurance Providers Payer Name Payer Address Payer Phone Subscriber Number Group Number Insured Name Patient Relationship to Insured Coverage Start Date Coverage End Date [facility] [address] [place] [address] [phone] [id number] Thai, Karey Self - patient is the insured Medical (General) History Medical History History ICD Code Hypothyroidism Rheumatoid arthritis Headaches/Migraines Chicken pox Surgical History Surgery Date(Month/Year) carpal tunnel surgery Hernia Repair 2011
--- OUTSIDE RECORDS SUMMARY | 2024-12-07 08:00 | XMS_ITS | Encounter Summary ---
Author Organization [facility] Address [address] [place] [address] Phone Care Team Providers Care Track Welder Name Role Phone Trell Cruz MD Unavailable [email or web address] Deyvi Carlin MD Unavailable [phone] Deyvi Carlin MD Primary Care Provider [phone] Jl Dale MD Unavailable [phone] Encounter Details Date Type Department Care Team (Late st Contact Info) Description 11/21/2024 Orders Only [facility] [address] [place] [address] Provider, MD Yamila On [place] [address] Social History Tobacco Use Types Packs/Day Years Used Date Smoking Tobacco: Never Smokeless Tobacco: Never Alcohol Use Standard Drinks/Week Comments Yes 4 [...] high school, GED, job training, learning the Togolese language, technical skills, or developing parenting skills)? [...] your housing situation today? I have payal sing 02/09/2024 How many times have you move [...] on file Sexual Orientation Not on file documented as of this encounter Plan of Treatment Upcoming Encounters Date Type Department Care Team (Late st Contact Info) Description 02/13/2025 8:00 AM EST Office Visit [facility] [address] [place] [address] [place] [address] Deyvi Carlin MD [address] [place] [address] documented as of this encounter Procedures Procedure Name Priority Date/Time Associated Diagnosis Comments OUTSIDE IMAGING Routine 11/17/2024 1:38 PM EDT documented in this encounter Results * Outside Imaging Report Only (11/17/2024 1:38 PM EDT) us Historical Provider IMRamon XR CHEST Final Res ult documented in this encounter Visit Diagnoses Not on filedocumented in this encounter Additional Health Concerns Assessment Noted Time PHQ-2 Depression Total Score: 0 02/09/20 24 7:54 AM EST documented as of this encounter Care Teams Track Welder Relationship Specialty Start Date End Date Deyvi Carlin MD [address] [place] [address], [address] [address] PCP - General Family Medicine 02/22/17 Trell Cruz MD [email or web address] Historical LMR Provider 12/28/16 Deyvi Cariln MD [address] [place] [address], [address] [address] Historical LMR Provider 12/28/16 Jl aDle MD [address] [place] [address], [address] [address] [email or web address] Insurance Assigned Provider 06/19/23 documented as of this encounter Additional Source Comments The information contained in this document represents components of the legal health record. It is not the complete legal health record.[facility]
--- OUTSIDE RECORDS SUMMARY | 2024-12-07 08:00 | XMS_ITS | Clinical Summary ---
Author Organization [facility] Address [address] [address] Phone Care Team Providers Care Radial [employer] Name Role Phone Trell Cruz MD Unavailable [email or web address] Deyvi Carlin MD Unavailable [phone] Deyvi Carlin MD Primary Care Provider [phone] Jl Dale MD Unavailable [phone] Allergies Active Allergy Reactions Criticality Noted Date [...] Plan (05/05/2023 2:30 PM EST): Followed by [facility] rheumatology. Last note 02/2023 reviewed. Resolved Problems Problem Noted Date Diagnosed Date Resolved Date Chronic fatigue 10/04/2017 02/09/2024 Encounters Date Type Department Care Team Description 11/21/2024 Orders Only [facility] [place] [address] [place] [address] Provider, MD Yamila from Last 3 Months Immunizations Immunization Administration Dates Next Due COVID-19 [...] high school, GED, job training, learning the Cypriot language, technical skills, or developing parenting skills)? [...] Description 02/13/2025 8:00 AM EST Office Visit [facility] [address] [place] [address] [place] [address] Deyvi Carlin MD [address] [facility] [place], [place] [id number] [email or web address] Health Maintenance Due Date Last Done Comments HEPATITIS C SCREENING 10/06/1989 HIV ONE-TIME SCREENING (18-65 YEARS) 10/06/1989 COLONOSCOPY 10/06/2016 FIT TEST 10/06/2016 FOBT 10/06/2016 SIGMOIDOSCOPY 10/06/2016 VIRTUAL COLONOSCOPY 10/06/2016 PNEUMOCOCCAL VACCINES (50+ years) (2 of 2 - PPSV23) 07/06/2019 05/11/2019 Adult Td,Tdap Booster 08/17/2021 08/18/2011 MAMMOGRAM 05/27/2024 05/27/2022, 12/26/2015 INFLUENZA VACCINE (#1) 2024 , 04/10/2023, 02/24/2022, Additional history exists COVID-19 VACCINE (5 - Mixed Product risk season) 2024 11/25/2023, 02/24/2022, 02/19/2021, Additional history exists DEPRESSION SCREENING 02/08/2025 02/09/2024 ZOSTER VACCINES (1 [...] OUTSIDE IMAGING Routine 11/17/2024 1:38 PM EDT LIPID PANEL Routine 03/03/2024 8:03 AM EST Annual physical exam TSH WITH REFLEX Routine 03/03/2024 8:03 AM EST Acquired hypothyroidism PAP TEST Routine 11/05/2022 HM MAMMOGRAPHY Routine 05/27/2022 from Last 3 Months or Most Recently Relevant to Health Maintenance Results * Outside Imaging Report Only (11/17/2024 1:38 PM EDT) us Historical Provider MD TANNER XR CHEST Final Res ult * TSH with reflex (03/03/2024 8:03 AM EST) TSH 2.54 0.27 - 4.20 uIU/mL [facility] Blood 03/03/2024 8:03 AM EST 03/03/2024 8:09 AM EST Result Yazan Carlin MD LAB BLOOD ORDERABLES Final Result Performing Organization Address [facility] Co de Phone Number [address] [address] * Lipid panel (03/03/2024 8:03 AM EST) HDL 44 mg/dL [facility] Comment: Interpretation <40 mg/dL: Low HDL cholesterol (major risk factor for CHD) Greater than or equal to 60 mg/dL: High HDL cholesterol ( negative risk factor for CHD) HDL - cholesterol is affected by a number of factors, e.g. smoking, excerise, hormones, sex and age. CHOLESTEROL 171 0 - 240 mg/dL [facility] TRIGLYCERIDES 79 30 - 160 mg/dL [facility] LDL 111 50 - 129 mg/dL [facility] Comment: LDL levels in terms of risk for coronary heart disease: <100 mg/dL: Optimal 100-129 mg/dL: Near or above optimal 130-159 mg/dL: Borderline high 160-189 mg/dL: High >190 mg/dL: Very High CARDIAC RISK RATIO 3.9 3.3 - 4.4 C [facility] Blood 03/03/2024 8:03 AM EST 03/03/2024 8:09 AM EST Result Yazan Carlin MD LAB BLOOD ORDERABLES Final Result Performing Organization Address [facility]/ZIP Co de Phone Number [address] [address] * Pap Test (11/05/2022) Result Yazan Carlin MD CYTOLOGY ORDERABLES Edited Result - Final * HM MAMMOGRAPHY FOR RESULT ENTRY ONLY (05/27/2022) Result Yazan Carlin MD HEALTH MAINTENANCE Edited Result - Final from Last 3 Months or Most Recently Relevant to Health Maintenance [place] [address] [address] [place] [address] [place] [address] [employer] Care Teams Rad[employer] Relationship Specialty Start Date End Date Deyvi Carlin MD [address] [place] [address], [address] [place] [address] [email or web address] [email or web address] - General Family Medicine 02/22/17 Trell Cruz MD [email or web address] Historical LMR Provider 12/28/16 Deyvi Carlin MD [address] [place] [address], [address] [place] [address] [email or web address] Historical LMR Provider 12/28/16 Jl Dale MD [address] [place] [address], [address] [place] [address] [email or web address] Insurance Assigned Provider 06/19/23 Additional Source Comments The information contained in this document represents components of the legal health record. It is not the complete legal health record.[facility]
[2024-12-07 08:04] VITALS: BMI 25.7
--- NOTE | 2024-12-07 08:04 | A.OFFVIS_ITS ---
Vital Signs 12/07/24 08:04 Height 5 ft 3 in Weight 145 lb BMI 25.7 Intake Visit Reasons: Primary osteoarthritis, unspecified ankle and foot Intake Note: Karey is a 54 year old female who presents today as a new patient for an evaluation of her osteoarthritis in her right foot and ankle. Patient states pain is located on the ball of her right foot and she has had the pain for about 6 months however the pain has increased since the last 6 weeks. she also noted she has soreness in the ball of her left foot but is mainly concerned with her right foot and ankle. She has also has been using OTC Ibuprofen for her pain Right foot xray Osteoarthritis/osteoarthrosis, first metatarsophalangeal joint. left foot x ray IMPRESSION: 1. No definite erosive arthropathy identified. 2. Bunion formation involving the first metatarsal head. Mild overlying soft tissue prominence. 3. Mild degenerative arthritis in the first MTP joint. Minimal hallux valgus. Worsened since prior exam. Allergies shellfish derived Allergy (Unknown, Verified 12/07/24 08:05) Unknown Erythromycin Allergy (Intermediate, Uncoded 02/21/24 08:19) hives HPI HPI Primary osteoarthritis, unspecified ankle and foot: Details: The patient is a 54-year-old female past medical history of rheumatoid arthritis, hypothyroid, osteopenia who presents for pain in the ball of her foot bilaterally, right foot worse than left.. The pain has been present for several months, initially occurring in the morning and improving by midday, but now it recurs after periods of inactivity. The patient describes the pain as being located in the center of the ball of the foot, with improvement noted after activity but recurrence after rest. She has tried various footwear, but reports that the pain persists regardless of shoe type. Occasionally, wearing a slight heel provides some relief. The patient has a history of fungal nail infections, for which she was previously treated with an oral antifungal medication. She reports that her left foot big toenail was damaged during a pedicure, leading to partial detachment. The patient notes that her bunions occasionally cause her pain however not persistently. [facility] Medical History (Updated 12/07/24 @ 09:01 by Tavares Diego DPM) Osteopenia of femoral neck Osteopenia Carpal tunnel syndrome Seronegative rheumatoid arthritis History of hypothyroidism Hx of rheumatoid arthritis Surgical History Hx of hernia repair Social History Household Members: Spouse Housing: House Alcohol intake: current Alcohol intake frequency: a few times a week Alcohol type: wine Patient Tobacco Use Status: Never used Tobacco e-Cigarette/Vaping Use: Never Used Sexual orientation: Straight/Heterosexual Gender identity: Female Female Reproductive History Menstrual Age of Menarche: 13 Review of Systems Const All systems reviewed & are unremarkable except as noted in HPI and below Physical Exam Vital Signs: BMI result Body Mass Index 25.7 Extrem Other: *Bilateral Lower Extremity Focused Exam Vascular: DP/PT 2/4, CFT<3s to digits, TG warm to cool, no pedal edema Derm: Dystrophic thickened elongated toenails times 3 right foot, x3 left foot. Right hallux nail as 30% detached on the lateral aspect. Hyperkeratotic lesions present to the plantar aspect of the 2nd metatarsal, and medial hallux bilaterally. Neuro: Protective sensation grossly intact to bilateral lower extremities. MSK: Tracking hallux valgus deformity bilaterally left worse than right. Left 1st Metatarsal-phalangeal joint 65 degrees of dorsiflexion, no crepitus on end range of motion. Right 1st Metatarsal-phalangeal joint range of motion within normal limits. Moderate tenderness on deep palpation of the plantar aspect of the 2nd metatarsal head bilaterally, right worse than left. IPK lesion on the plantar aspect of the 2nd digit proximal phalanx base. Negative Catrina's test to all digits bilaterally. Office Procedures AMB Debridement/Avulsion Podia Details: Procedure: Callus debridement Location: 3 right foot, 2 left foot Anesthesia: N/A Description: The affected area was cleansed with an antiseptic solution. Using a sterile #15 blade, the hyperkeratotic tissue was radially debrided from the foot. All callused tissue was removed down to normal skin without causing bleeding or discomfort. The area was inspected for underlying ulceration or infection. Patient tolerated the procedure well. No complications noted. Tolerance: Patient tolerated procedure well, no immediate complications. [id number] of Callus (2-4) Procedure code (CPT) selection complete Results Reviewed Results Reviewed: Podiatry X-ray Read: 11/17/2024 X-ray left foot 3 views (AP, MO, Lateral) reviewed which shows 1st intermetatarsal angle 16 degrees with moderate to severe 1st Metatarsal- phalangeal joint joint space narrowing, hallux valgus angle 30 degrees. No joint space narrowing of the 2nd through 5th metatarsophalangeal joints. Mild dorsal 1st metatarsal exostosis. Small osteophyte dorsal aspect of the navicular. No fractures, dislocations, or gross abnormalities. Bone density is within normal limits. No evidence of swelling, foreign body, or calcifications. I personally reviewed the imaging and my findings are listed above. Podiatry X-ray Read: 11/17/2024 X-ray right foot 3 views (AP, MO, Lateral) reviewed which shows 1st intermetatarsal angle 9 degrees, HAV angle 20 degrees. Moderate-severe 1st MCP joint space narrowing. No narrowing of the 2nd through 5th Metatarsal- phalangeal joint. Fourth digit abducted proximally 10 degrees. no fractures, dislocations, or gross abnormalities. Bone density is within normal limits. No evidence of swelling, foreign body, or calcifications. I personally reviewed the imaging and my findings are listed above. Assessment & Plan Assessment & Plan (1) Hallux rigidus: Code(s): M20.20 - Hallux rigidus, unspecified foot Category: Medical Qualifiers: Laterality: bilateral Qualified Code(s): M20.21 - Hallux rigidus, right foot; M20.22 - Hallux rigidus, left foot Plan: * Reviewed x-rays with the patient. Discussed that she may eventually need a 1st Metatarsal-phalangeal joint fusion, and possible 2nd through 5th metatarsal osteotomies. * Discussed possible cortisone injections in the future if symptoms worsen at any point. (2) Metatarsalgia of both feet: Code(s): M77.41 - Metatarsalgia, right foot; M77.42 - Metatarsalgia, left foot Category: Medical Plan: * Discussed the etiology of her forefoot pain including her cavus foot type, severe bunion deformities which are causing forefoot loading to her 2nd and 3rd metatarsophalangeal joints. * Recommended orthotics (Aetrex with metatarsal pads) and metatarsal pads * Recommend daily digital exercises and activity 2 or 3 times a day to engage in motion to her forefoot joints. Patient may benefit from physical therapy in the future if she does not find relief from home exercises. * Patient was recommended 2nd MTP cortisone injection at the next visit if symptoms do not improve from shoe-wear, orthotics, and metatarsal pads. (3) Seronegative rheumatoid arthritis: Comment: Diagnosed in 1999. Plaquenil: 08/30/2018 -ineffective Methotrexate: failed oral and subcutaneous dates unknown Xeljanz: dates unknown Leflunomide: dates unknown - caused cough Enbrel: dates unknown Humira: April 2019- present Prednisone: 06/08/2018- present Code(s): M06.00 - Rheumatoid arthritis without rheumatoid factor, unspecified site Category: Medical Plan: * Explained that she has a progressive deformity which can eventually lead to arthritic changes in her foot that may require surgical intervention in the future. (4) Tinea unguium: Code(s): B35.1 - Tinea unguium Category: Medical Plan: * Right hallux nail biopsy sent for pathology and culture * Discussed treatment options including topical treatment versus oral antifungal medications. * Explained that oral antifungals such as terbinafine (Lamisil) may cause gastrointestinal upset, headache, rash, taste disturbances, and hepatotoxicity. Baseline and monthly liver function monitoring is recommended during therapy. Patients should be advised to report symptoms such as jaundice, dark urine, or persistent nausea. * Explained that due to her chronic fungal nail changes and onycholysis, she likely will fail topical medication. (5) Callus of foot: Code(s): L84 - Corns and callosities Category: Medical Plan: * Debrided hyperkeratotic lesions bilateral feet using #15 blade. * Rx amlactin Orders: Orders Fungus Cult Hair/Skin/Nail Today B35.1 - Tinea unguium AMB Debridement/Avulsion Podiatry Today L84 - Corns and callosities Surgical Today B35.1 - Tinea unguium Medications: New ammonium lactate 12% (AmLactin) 1 appl topical DAILY 225 grams 3RF xerosis L85.3 - Xerosis cutis Coding Level of Care Code New Pt Level 4 (53238) Diagnoses Hallux rigidus of both feet M20.21; M20.22 Laterality: bilateral Metatarsalgia of both feet M77.41; M77.42 Seronegative rheumatoid arthritis M06.00 Tinea unguium B35.1 Callus of foot L84 CPT Codes Skin Debridement - CPT: 50368-Niuayipahfy of Callus (2-4) ([id number]) Time Spent (min) 50
== END 2024-12-07 08:41 | disposition home or self-care (01) ==
LOC: HO.HPODS 07:57
PROVIDERS: PCP Family Medicine; Visit Provider Student in an Organized Health Care Education/Training Program
DX: M20.21 Hallux rigidus, right foot (principal); M20.22 Hallux rigidus, left foot; M77.41 Metatarsalgia, right foot; M77.42 Metatarsalgia, left foot; M06.00 Rheumatoid arthritis without rheumatoid factor, unspecified site; B35.1 Tinea unguium; L84 Corns and callosities
CPT/HCPCS: 11056; 99204

== ENCOUNTER 2024-12-07 08:46 | Outpatient (REF) | payer BC, SELFPAY | END 2024-12-07 08:47 | disposition home or self-care (01) | LOC: HO.LNP 08:46 | PROVIDERS: Visit Provider Student in an Organized Health Care Education/Training Program | DX: B35.1 Tinea unguium (principal) | CPT/HCPCS: 88304; 88312 ==